=== PATIENT | female | born 1960 | race Native Hawaiian/Other Pacific Islander ===

== ENCOUNTER 2017-08-29 12:18 | Inpatient (IN) | payer MEDICAID ==
[2017-08-29] MEDS ORDERED: RINGERS SOLUTION,LACTATED 1,000 ML IV ONE ×2 (14:42→15:28)
[2017-08-29] MEDS ORDERED: ONDANSETRON HCL INJ/PF 4 MG/2 ML SDV IV ONE ×2 (14:43→17:36)
[2017-08-29] MEDS ORDERED: HYDROMORPHONE HCL INJ/PF 2 MG/ML AMPULE IV ONE (14:43)
[2017-08-29 15:10] LABS: ABSOLUTE EOSINOPHILS # (AUTO) 0.3 10^3/uL (0.0-0.6); ABSOLUTE LYMPHOCYTES (AUTO) 0.4 10^3/uL (0.5-4.7); ABSOLUTE MONOCYTES (AUTO) 0.3 10^3/uL (0.1-1.4); ABSOLUTE NEUT (AUTO) 2.8 10^3/uL (1.7-8.2); BASOPHILS % (AUTO) 0.5 % (0-2); EOSINOPHILS % (AUTO) 6.9 % (0-6); HEMATOCRIT 26.5 % (36.0-47.0); HEMOGLOBIN 8.9 g/dL (12.0-15.5); HGB HCT DIFFERENCE 0.2; LYMPHOCYTES % (AUTO) 11.4 % (13-45); MEAN CORPUSCULAR HEMOGLOBIN 25.8 pg (27.0-33.4); MEAN CORPUSCULAR HGB CONC 33.7 g/dL (32.0-36.0); MEAN CORPUSCULAR VOLUME 76 fl (80-97); MONOCYTES % (AUTO) 6.9 % (3-13); RED BLOOD COUNT 3.46 10^6/uL (3.72-5.28); RED CELL DISTRIBUTION WIDTH 15.4 % (11.5-14.0); SEGMENTED NEUTROPHILS % (AUTO) 74.3 % (42-78); WHITE BLOOD COUNT 3.8 10^3/uL (4.0-10.5)
--- NOTE | 2017-08-29 15:15 | ER Document Report ---
ED General - General Chief Complaint: Back Pain Stated Complaint: BACK PAIN,RIGHT ARM PAIN Time Seen by Provider: 08/29/17 14:42 Mode of Arrival: Ambulatory Information source: Patient Notes: This is a 56-year-old female with a history of stage IV thyroid cancer (status post 2 rounds of chemotherapy, in [place]) that recently came here to visit family and presents to the emergency room with nonproductive cough, back pain, nausea and vomiting. Patient states her symptoms started last Monday. Patient states she has not been able to tolerate any fluids. - HPI Onset: Last week Onset/Duration: Gradual Quality of pain: Dull Severity: Severe Pain Level: 5 Associated symptoms: denies: Chills, Fever, Shortness of breath Exacerbated by: Denies Relieved by: Denies Similar symptoms previously: Yes Recently seen / treated by doctor: Yes - Related Data Allergies/Adverse Reactions: Sulfa (Sulfonamide Antibiotics) Allergy (Verified 08/29/17 12:26) Past Medical History - General Information source: Patient - Social History Smoking Status: Never Smoker Cigarette use (# per day): No Chew tobacco use (# tins/day): No Frequency of alcohol use: None Drug Abuse: None Lives with: Family Family History: Reviewed & Not Pertinent Patient has suicidal ideation: No Patient has homicidal ideation: No - Medical History Medical History: Other - Stage IV metastatic thyroid cancer - Past Medical History Cardiac Medical History: Reports: Hx Hypertension Pulmonary Medical History: Reports: None EENT Medical History: Reports: None Neurological Medical History: Reports: None Endocrine Medical History: Reports: None Renal/ Medical History: Reports: None. Denies: Hx Peritoneal Dialysis Malignancy Medical History: Reports: None GI Medical History: Reports: None Musculoskeltal Medical History: Reports None Skin Medical History: Reports None Psychiatric Medical History: Reports: None Past Surgical History: Reports: Hx Thyroid Surgery Review of Systems - Review of Systems Constitutional: denies: Chills, Fever EENT: No symptoms reported Cardiovascular: No symptoms reported Respiratory: See HPI, Cough Gastrointestinal: No symptoms reported Genitourinary: No symptoms reported Female Genitourinary: No symptoms reported Musculoskeletal: See HPI Skin: No symptoms reported Hematologic/Lymphatic: No symptoms reported Neurological/Psychological: No symptoms reported Physical Exam - Vital signs Vitals: Temp Pulse Resp BP Pulse Ox 98.8 F 105 H 16 121/64 98 08/29/17 12:22 11/28/17 12:22 08/29/17 12:22 08/29/17 12:22 08/29/17 12:22 Notes: Physical exam: GENERAL: 56-year-old female, alert and oriented 3, appears weak and ill. HEAD: Atraumatic, normocephalic. EYES: Pupils equal round and reactive to light, extraocular movements intact, sclera anicteric, conjunctiva are normal. ENT: TMs normal, nares patent, oropharynx clear without exudates. dry mucous membranes. NECK: Normal range of motion, supple without obvious mass or JVD. LUNGS: Breath sounds clear to auscultation bilaterally and equal. No wheezes rales or rhonchi. HEART: Regular rate and rhythm without murmurs, rubs or gallops. ABDOMEN: Soft, normoactive bowel sounds. No tenderness to palpation. No guarding, no rebound. No masses appreciated. EXTREMITIES: Normal range of motion, no pitting or edema. No clubbing or cyanosis. NEUROLOGICAL: Cranial nerves II through XII grossly intact. Normal speech, moving all extremities. PSYCH: Normal mood, normal affect. SKIN: Warm, Dry, normal turgor, no rashes or lesions noted. Course - Re-evaluation Re-evalutation: 08/29/17 17:51 Note: Patient is required Dilaudid every hour and she is requiring required anti -emetics. She does appear quite weak on exam. Her weakness is generalized. She is moving her extremities. She is aware of her metastatic disease: I did discuss the CAT scan with her. I discussed the case with the oncologist on- call (Dr. Zeng) and she is willing to see the patient in consult. Due to her intractable pain and persistent nausea with vomiting, we will admit her to the hospital for pain control, IV fluids and anti-emetics. - Vital Signs Vital signs: Temp Pulse Resp BP Pulse Ox 98.8 F 105 H 16 121/64 98 08/29/17 12:22 08/29/17 12:22 08/29/17 12:22 08/29/17 12:22 08/29/17 12:22 - Laboratory Result Diagrams: 08/29/17 14:52 08/29/17 14:52 Laboratory results interpreted by me: 08/29/17 08/29/17 14:52 14:52 WBC 3.8 L RBC 3.46 L Hgb 8.9 L Hct 26.5 L MCV 76 L MCH 25.8 L RDW 15.4 H Plt Count 108 L Lymphocytes % 11.4 L Eosinophils % 6.9 H Absolute Lymphocytes 0.4 L Glucose 113 H Calcium 10.5 H Alkaline Phosphatase 203 H - Diagnostic Test Radiology reviewed: Image reviewed, Reports reviewed - CTA shows metastatic disease to the ribs, T12 compression fracture most likely pathologic. Discharge - Discharge Clinical Impression: Intractable pain, Vomiting with nausea, T12 compression fracture, Metastatic cancer Condition: Stable Disposition: ADMITTED INPATIENT Admitting Provider: Hospitalist - Dr Li Unit Admitted: Medical Floor
[2017-08-29 15:30] LABS: ALANINE AMINOTRANSFERASE 47 U/L (9-52); ALBUMIN 4.2 g/dL (3.5-5.0); ALKALINE PHOSPHATASE 203 U/L (38-126); ANION GAP 13 (5-19); ASPARTATE AMINO TRANSFERASE 33 U/L (14-36); BILIRUBIN,DIRECT 0.3 mg/dL (0.0-0.4); BILIRUBIN,TOTAL 0.5 mg/dL (0.2-1.3); BLOOD UREA NITROGEN 17 mg/dL (7-20); CALCIUM 10.5 mg/dL (8.4-10.2); CARBON DIOXIDE 25 mmol/L (22-30); CHLORIDE 105 mmol/L (98-107); CREATININE RESULT 0.81 mg/dL (0.52-1.25); GLUCOSE 113 mg/dL (75-110); POTASSIUM 4.9 mmol/L (3.6-5.0); TOTAL PROTEIN 6.7 g/dL (6.3-8.2)
--- NOTE | 2017-08-29 16:05 | RADIOLOGY REPORT (SQ) ---
EXAM DESCRIPTION: CHEST SINGLE VIEW COMPLETED DATE/TIME: 08/29/2017 3:56 pm REASON FOR STUDY: cough COMPARISON: None. EXAM PARAMETERS: NUMBER OF VIEWS: One view. TECHNIQUE: Single frontal radiographic view of the chest acquired. RADIATION DOSE: NA LIMITATIONS: None. FINDINGS: LUNGS AND PLEURA: Right lung grossly clear. On the left side, there are multiple surgical clips over the medial aspect left upper lobe likely pos t partial resection. There are nodular areas of pleural thickening over the left lung apex and left mid chest. Pleural based tumor may be present. No right or left pleural effusion or pneumothorax. MEDIASTINUM AND HILAR STRUCTURES: Surgical clips left upper hilum likely post partial resection of th e left upper lobe HEART AND VASCULAR STRUCTURES: Mild cardiomegaly BONES: Multiple old healed left lateral rib fractures or post thoracotomy change HARDWARE: No pacemaker OTHER: No other significant finding. IMPRESSION: Evidence of prior surgery on the left, with surgical clips in the medial aspect left upp er lung. Multiple nodular areas of pleural thickening worrisome for recurrent tumor. Old post thora cotomy or posttraumatic changes left lateral ribs TECHNICAL DOCUMENTATION: JOB ID: [id number] [employer]- All Rights Reserved
[2017-08-29] MEDS: HYDROMORPHONE HCL INJ/PF 2 MG/ML AMPULE IV PRN ×4 (16:06→20:52)
--- NOTE | 2017-08-29 17:27 | RADIOLOGY REPORT (SQ) ---
EXAM DESCRIPTION: CTA CHEST COMPLETED DATE/TIME: 08/29/2017 5:05 pm REASON FOR STUDY: back pain, sob COMPARISON: None. TECHNIQUE: CT scan of the chest performed using helical scanning technique with dynamic intravenous contrast injection. Images reviewed with lung, soft tissue and bone windows. Reconstructed coronal and sagittal MPR images reviewed. Additional 3 dimensional post-processing performed to develop Maximal Intensity Projection images (PR P). All images stored on PACS. All CT scanners at this facility use dose modulation, iterative reconstruction, and/or weight based d osing when appropriate to reduce radiation dose to as low as reasonably achievable (ALARA). [facility]: Dose Right [facility]: CareDose [facility]: Dose Right [facility]: Teradose 4D [facility]: [employer] CONTRAST TYPE AND DOSE: contrast/concentration: Isovue 370.00 mg/ml; Total Contrast Delivered: 60.0 ml; Total Saline Delivered: 105.0 ml Contrast bolus optimized for the pulmonary arteries. RENAL FUNCTION: Creatinine 0.81 RADIATION DOSE: CT Rad equipment meets quality standard of care and radiation dose reduction techniq ues were employed. CTDIvol: 9.3 - 11.3 mGy. DLP: 340 mGy-cm. . LIMITATIONS: None. FINDINGS: LUNGS AND PLEURA: There are multiple bilateral pleural base mass lesions which are more pr onounced in the left hemithorax as compared to the right. The largest of these is in the left lower hemithorax measuring 2.8 x 1.6 cm in diameters. A small 5.0 mm in diameter pulmonary nodule is ident ified in the right lower lung field best seen on image number 27. A pleural-based mass is identified in the right lower hemithorax with invasion of the adjacent 5th rib anteriorly with a large lytic le monica being identified. There are couple other small or lytic lesions involving the adjacent ribs. T he appearance is suspicious for metastatic disease. No acute consolidations or pleural effusions are identified. No pneumothorax is seen AORTA AND GREAT VESSELS: No aneurysm. Contrast bolus not optimized for the aorta. HEART: No pericardial effusion. No significant coronary artery calcifications. PULMONARY ARTERIES: No emboli visualized in the main pulmonary arteries or the segmental branches. HILAR AND MEDIASTINAL STRUCTURES: No identified masses or abnormal nodes. HARDWARE: None in the chest. UPPER ABDOMEN: No significant findings. Limited exam. THYROID AND OTHER SOFT TISSUES: Multiple varying size nodules are identified in the subcutaneous fat and adjacent to the thoracic musculature throughout the thorax suspicious for metastatic disease. BONES: There is approximately 50% compression of the T12 vertebra suspicious for a pathologic aubrey monica. Small lytic areas are identified involving multiple lives in lytic areas are identified involv ing the scapula bilaterally. The appearance is suspicious for metastatic disease 3D MIPS: Confirm above findings. OTHER: No other significant finding. IMPRESSION: No evidence for pulmonary embolic disease. No acute consolidations or pleural effusions are identified. Multiple bilateral pleural base mass lesions left greater than right as noted above suspicious for metastatic disease. There are lytic lesions involving adjacent ribs as noted above. Multiple nodular masses are identified in the subcutaneous fat and adjacent to the thoracic musculat ure throughout the thorax suspicious for metastatic disease. There is 50% compression of the T12 shane tebra suspicious for a pathologic compression. Other findings as noted above COMMENT: Quality ID # 436: Final reports with documentation of one or more dose reduction techniques (e.g., Automated exposure control, adjustment of the mA and/or kV according to patient size, use of iterative reconstruction technique) TECHNICAL DOCUMENTATION: JOB ID: [id number] [employer]- All Rights Reserved
[2017-08-29] MEDS ORDERED: NORMAL SALINE 1000 ML 1,000 ML IV PRN (17:52)
[2017-08-29] MEDS ORDERED: LORAZEPAM INJ 2 MG/1 ML VIAL IV PRN ×2 (18:07→18:14)
[2017-08-29] MEDS: DEXTROSE 5%-1/2 NORMAL SALINE 1,000 ML IV PRN (19:34)
[2017-08-29] MEDS: ONDANSETRON HCL INJ/PF 4 MG/2 ML SDV IV PRN (20:52)
[2017-08-29] MEDS ORDERED: MORPHINE SULFATE 10 MG/ML INJ IV PRN (21:00)
[2017-08-29] MEDS: METOCLOPRAMIDE HCL INJ/PF 10 MG/2 ML SDV IV SCH (22:23)
[2017-08-29] MEDS: PROMETHAZINE HCL INJ 25 MG/1 ML VIAL IV PRN ×2 (22:23→22:28)
[2017-08-30] MEDS: HYDROMORPHONE HCL INJ/PF 2 MG/ML AMPULE IV PRN ×5 (01:10→22:24)
[2017-08-30] MEDS: ONDANSETRON HCL INJ/PF 4 MG/2 ML SDV IV PRN ×2 (05:03→11:32)
--- NOTE | 2017-08-30 08:26 | PDOC CONSULTATION ---
Consultation Consult Date: 08/30/17 Consult reason:: Thyroid Cancer History of Present Illness Admission Date/PCP: 08/29/17 18:34 History of Present Illness: SALVADOR SANFORD is a 56 year old female who states that she arrived here from [place] 7 days ago to visit her children. She was diagnosed with Thyroid cancer in 1989 and underwent Thyroidectomy and radioactive Iodine treatments. She states that she was cancer free for 12 years, but then was round to have metastatic disease. She has been on Keytruda for the past 6 months and is overdue for her next cycle. She follows with Dr. Mohinder Young with [facility] in [place]. Over the past few days, she believes that she has caught pneumonia. She is coughing with chest pain and increased yellow sputum. She denies fevers or other problems this morning. Past Medical History Past Medical History: She received a blood transfusion earlier this year. Cardiac Medical History: Reports: Hypertension Pulmonary Medical History: Reports: None EENT Medical History: Reports: None Neurological Medical History: Reports: None Endocrine Medical History: Reports: None Renal/ Medical History: Reports: None Malignancy Medical History: Reports: None GI Medical History: Reports: None Musculoskeltal Medical History: Reports: None Skin Medical History: Reports: None Psychiatric Medical History: Reports: None Past Surgical History Past Surgical History: Reports: Thyroidectomy, Other - Lumpectomy Left Wrist Social History Information Source: Patient Occupation: retired [employer]. Lives with: Family, Other - She is with 2 children. Smoking Status: Never Smoker Frequency of Alcohol Use: None Hx Recreational Drug Use: No Drugs: None Hx Prescription Drug Abuse: No Family History Family History: Father age 54 from Lung Cancer. Mother age 84 from Lung cancer. Parental Family History Reviewed: Yes Children Family History Reviewed: No Sibling(s) Family History Reviewed.: Yes Medication/Allergy Home Medications: Gabapentin [Neurontin 300 mg Capsule] 300 mg PO Q8 08/29/17 Hydrochlorothiazide [Hydrodiuril 25 mg Tablet] 25 mg PO DAILY 08/29/17 Ondansetron HCl [Zofran 4 mg Tablet] 4 mg PO Q4HP PRN 08/29/17 Allergies/Adverse Reactions: Sulfa (Sulfonamide Antibiotics) Allergy (Verified 08/29/17 12:26) Review of Systems Constitutional: PRESENT: fatigue Eyes: ABSENT: visual disturbances Ears: ABSENT: hearing changes Nose, Mouth, and Throat: ABSENT: headache(s) Cardiovascular: PRESENT: chest pain Respiratory: PRESENT: cough, sputum. ABSENT: hemoptysis Gastrointestinal: PRESENT: nausea. ABSENT: constipation, diarrhea Integumentary: ABSENT: rash Neurological: ABSENT: confusion, numbness, tingling Psychiatric: ABSENT: anxiety, depression Endocrine: ABSENT: menstrual abnormalities Physical Exam Vital Signs: Temp Pulse Resp BP Pulse Ox 98.7 F 107 H 17 113/57 L 93 08/30/17 07:07 08/30/17 07:07 08/30/17 07:07 08/30/17 07:07 08/30/17 07:07 Intake & Output 08/29/17 08/30/17 08/31/17 06:59 06:59 06:59 Intake Total 222 Output Total 400 Balance -178 Weight 66.3 kg General appearance: PRESENT: no acute distress Exam: Well nourished, female. Head exam: PRESENT: atraumatic Eye exam: PRESENT: EOMI, PERRLA Mouth exam: PRESENT: moist, tongue midline Neck exam: ABSENT: lymphadenopathy, tenderness, thyromegaly Respiratory exam: PRESENT: clear to auscultation ronak Cardiovascular exam: PRESENT: RRR Pulses: PRESENT: normal dorsalis pedis pul GI/Abdominal exam: PRESENT: normal bowel sounds, soft. ABSENT: tenderness Gentrourinary exam: ABSENT: ecchymosis Extremities exam: ABSENT: pedal edema Musculoskeletal exam: ABSENT: tenderness Neurological exam: PRESENT: alert, awake, oriented to person, oriented to place , oriented to situation, CN II-XII grossly intact Psychiatric exam: PRESENT: appropriate affect. ABSENT: anxious, depressed Skin exam: PRESENT: normal color, warm Results Impressions: Chest X-Ray 08/29/17 15:15 IMPRESSION: Evidence of prior surgery on the left, with surgical clips in the medial aspect left upper lung. Multiple nodular areas of pleural thickening worrisome for recurrent tumor. Old post thoracotomy or posttraumatic changes left lateral ribs Chest/Abdomen CTA 08/29/17 16:34 IMPRESSION: No evidence for pulmonary embolic disease. No acute consolidations or pleural effusions are identified. Multiple bilateral pleural base mass lesions left greater than right as noted above suspicious for metastatic disease. There are lytic lesions involving adjacent ribs as noted above. Multiple nodular masses are identified in the subcutaneous fat and adjacent to the thoracic musculature throughout the thorax suspicious for metastatic disease. There is 50% compression of the T12 vertebra suspicious for a pathologic compression. Other findings as noted above Assessment & Plan - Diagnosis (1) Thyroid cancer Is this a current diagnosis for this admission?: Yes Plan: I have tried to contact Dr. Mohinder Young at [phone] for more information and patient records. However, the office was not yet open on [facility]. I have asked the hospital staff to try again later. I will need a pathology report, recent labs, recent CT report, and recent chemotherapy information. From the CT, it looks as though she has lung and bone mets. I am unsure what most recent treatment has been. She has had thyroid surgery in the past. I will check TSH and add synthroid as appropriate. (2) Hypercalcemia Plan: This may be related to the bone mets. I will try to see if she has had a bone modulating agent within the last month. I would continue to monitor and suggest obtaining ionized calcium. (3) Cough Plan: I will add Mucinex 1200 mg BID to see if this helps her cough. There was no evidence of pneumonia on chest CT. Consider repeat CXR tomorrow. If cough continues, consider pulse dose steroids or inhaler. But her lungs are clear this morning. (4) Pancytopenia due to antineoplastic chemotherapy Plan: This is currently mild. Continue to monitor and transfuse if needed. No current neutropenia.
[2017-08-30] MEDS: METOCLOPRAMIDE HCL INJ/PF 10 MG/2 ML SDV IV SCH ×4 (10:13→22:23)
[2017-08-30] MEDS: GUAIFENESIN 600 MG TABLET.SA PO SCH ×2 (10:13→22:23)
--- NOTE | 2017-08-30 19:55 | Physician Advisory Note ---
Physician Advisor ProgressNote .: [facility], I have reviewed the medical record for this patient. Physician Advisor Statement: Please consider documenting, if you agree: 1. "pancytopenia due to chemotherapy" 2. "pathological fx T12 due to metastatic dz" 3. "hypercalcemia due to mets" 4. H&P needs to be done within 24 hrs of admission. THanks! CK
[2017-08-31] MEDS: DEXTROSE 5%-1/2 NORMAL SALINE 1,000 ML IV PRN (01:00)
[2017-08-31] MEDS: HYDROMORPHONE HCL INJ/PF 2 MG/ML AMPULE IV PRN ×3 (03:24→13:56)
[2017-08-31] MEDS ORDERED: LEVOTHYROXINE SODIUM 0.025 MG TABLET PO SCH (06:00)
--- NOTE | 2017-08-31 07:40 | PDOC PROGRESS REPORT ---
Subjective Subjective:: Today, patient states that she is having pain in her right arm as well as numbness in her right 4th and 5th fingers. She shows me the soft tissue tumors on her neck and arm, presumably from the cancer. She states that she does not have severe pain, more of an annoyance. Her cough and nausea have improved. Reason For Visit: INTRACTABLE NAUSEA AND VOMITING,SEVERE Physical Exam Vital Signs: Temp Pulse Resp BP Pulse Ox 98.9 F 110 H 16 96/59 L 93 08/30/17 23:31 08/30/17 23:31 08/30/17 23:31 08/30/17 23:31 08/30/17 23:31 Intake & Output 08/30/17 08/31/17 09/01/17 06:59 06:59 06:59 Intake Total 222 2552 Output Total 400 1525 Balance -178 1027 Weight 66.3 kg 68.5 kg General appearance: PRESENT: no acute distress, cooperative, well-nourished Head exam: PRESENT: atraumatic Neck exam: PRESENT: other - Multiple soft tissue masses in posterior neck. Respiratory exam: PRESENT: clear to auscultation ronak Cardiovascular exam: PRESENT: RRR Neurological exam: PRESENT: alert, altered, CN II-XII grossly intact Results Impressions: Chest X-Ray 08/29/17 15:15 IMPRESSION: Evidence of prior surgery on the left, with surgical clips in the medial aspect left upper lung. Multiple nodular areas of pleural thickening worrisome for recurrent tumor. Old post thoracotomy or posttraumatic changes left lateral ribs Chest/Abdomen CTA 08/29/17 16:34 IMPRESSION: No evidence for pulmonary embolic disease. No acute consolidations or pleural effusions are identified. Multiple bilateral pleural base mass lesions left greater than right as noted above suspicious for metastatic disease. There are lytic lesions involving adjacent ribs as noted above. Multiple nodular masses are identified in the subcutaneous fat and adjacent to the thoracic musculature throughout the thorax suspicious for metastatic disease. There is 50% compression of the T12 vertebra suspicious for a pathologic compression. Other findings as noted above Assessment & Plan - Diagnosis (1) Thyroid cancer Is this a current diagnosis for this admission?: Yes Plan: I asked patient what she wanted long-term, if she wants to continue aggressive treatment or just wait and try to get stronger over the next few months. Patient is not sure. Since I do not yet have any records from [place], I have no way of knowing what her most recent chemo was, if it appears to be working, etc. (2) Hypercalcemia Plan: Repeat labs today. Consider bisphosphonate treatment. (3) Cough Plan: improving. (4) Pancytopenia due to antineoplastic chemotherapy Plan: Repeat labs today. (5) Cancer associated pain Plan: Consider a long-acting pain medication. She seems to be tolerating current regimen.
[2017-08-31 09:18] LABS: ABSOLUTE EOSINOPHILS # (AUTO) 0.2 10^3/uL (0.0-0.6); ABSOLUTE LYMPHOCYTES (AUTO) 0.4 10^3/uL (0.5-4.7); ABSOLUTE MONOCYTES (AUTO) 0.4 10^3/uL (0.1-1.4); ABSOLUTE NEUT (AUTO) 2.9 10^3/uL (1.7-8.2); BASOPHILS % (AUTO) 0.4 % (0-2); EOSINOPHILS % (AUTO) 5.7 % (0-6); HEMATOCRIT 23.6 % (36.0-47.0); HGB HCT DIFFERENCE -0.2; LYMPHOCYTES % (AUTO) 10.5 % (13-45); MEAN CORPUSCULAR HEMOGLOBIN 25.6 pg (27.0-33.4); MEAN CORPUSCULAR HGB CONC 33.2 g/dL (32.0-36.0); MEAN CORPUSCULAR VOLUME 77 fl (80-97); MONOCYTES % (AUTO) 9.9 % (3-13); RED BLOOD COUNT 3.06 10^6/uL (3.72-5.28); RED CELL DISTRIBUTION WIDTH 15.2 % (11.5-14.0); SEGMENTED NEUTROPHILS % (AUTO) 73.5 % (42-78); WHITE BLOOD COUNT 3.9 10^3/uL (4.0-10.5)
[2017-08-31 09:39] LABS: ALANINE AMINOTRANSFERASE 38 U/L (9-52); ALBUMIN 3.5 g/dL (3.5-5.0); ALKALINE PHOSPHATASE 161 U/L (38-126); ANION GAP 12 (5-19); ASPARTATE AMINO TRANSFERASE 26 U/L (14-36); BILIRUBIN,DIRECT 0.4 mg/dL (0.0-0.4); BILIRUBIN,TOTAL 0.6 mg/dL (0.2-1.3); BLOOD UREA NITROGEN 7 mg/dL (7-20); CALCIUM 9.6 mg/dL (8.4-10.2); CARBON DIOXIDE 23 mmol/L (22-30); CHLORIDE 103 mmol/L (98-107); GLUCOSE 114 mg/dL (75-110); POTASSIUM 3.7 mmol/L (3.6-5.0); SODIUM 138.2 mmol/L (137-145); TOTAL PROTEIN 5.8 g/dL (6.3-8.2)
[2017-08-31 09:47] LABS: HEMOGLOBIN 7.8 g/dL (12.0-15.5)
[2017-08-31] MEDS: METOCLOPRAMIDE HCL INJ/PF 10 MG/2 ML SDV IV SCH ×2 (09:53→13:40)
[2017-08-31] MEDS: GUAIFENESIN 600 MG TABLET.SA PO SCH (09:54)
[2017-08-31 11:44] VITALS: BP 108/59
[2017-08-31] MEDS ORDERED: ONDANSETRON HCL INJ/PF 4 MG/2 ML SDV IV PRN (15:00)
[2017-08-31] MEDS ORDERED: FENTANYL 12 MCG/HR PATCH.TD72 TD ONE (15:30)
--- NOTE | 2017-09-05 06:19 | PDOC H&P ---
History of Present Illness Admission Date/PCP: 08/29/17 18:34 Patient complains of: Nausea, vomiting and pain History of Present Illness: SALVADOR SANFORD is a 56 year old female with history of stage 4 thyroid cancer status post thyroidectomy and chemotheropy. Patient is currently undergo treament with [facility] in [place] at [place]. Patient states that this is her second round. She has been battling thyroid cancer for 32 years and has had multiple surgeries as result. Patient his her visiting her daughter, but states she will be moving her with her family. Patient states she has been nauseated and vomiting because of the morphine is is taking. She has chronic pain because of her metastatic disease and inability to tolerate her pain medication. Her family is not aware of how advance her disease is. Patient is moving here and would like to establish care with an oncologist. In the ED she continued to vomit despite being given anti emetics. Her pain was not well controlled with the doses of dilaudid she was given. She was found to have pathological fractures on imaging with mets to the ribs. Past Medical History Cardiac Medical History: Reports: Hypertension Pulmonary Medical History: Reports: None EENT Medical History: Reports: None Neurological Medical History: Reports: None Endocrine Medical History: Reports: None Renal/ Medical History: Reports: None Malignancy Medical History: Reports: None GI Medical History: Reports: None Musculoskeltal Medical History: Reports: None Skin Medical History: Reports: None Psychiatric Medical History: Reports: None Past Surgical History Past Surgical History: Reports: Thyroidectomy, Other - Lumpectomy Left Wrist Social History Information Source: Patient Lives with: Family, Other - She is with 2 children. Smoking Status: Never Smoker Frequency of Alcohol Use: None Hx Recreational Drug Use: No Drugs: None Hx Prescription Drug Abuse: No - Advance Directive Resuscitation Status: Full Code Family History Family History: Malignancy - lung cancer father Parental Family History Reviewed: No Children Family History Reviewed: No Sibling(s) Family History Reviewed.: No Medication/Allergy Home Medications: Gabapentin [Neurontin 300 mg Capsule] 300 mg PO Q8 08/29/17 Ondansetron HCl [Zofran 4 mg Tablet] 4 mg PO Q4HP PRN 08/29/17 Allergies/Adverse Reactions: Sulfa (Sulfonamide Antibiotics) Allergy (Verified 08/29/17 12:26) Review of Systems Constitutional: PRESENT: weakness. ABSENT: fever(s), headache(s), weight gain, weight loss Eyes: ABSENT: visual disturbances Ears: ABSENT: hearing changes Cardiovascular: ABSENT: chest pain, dyspnea on exertion, edema, orthropnea, palpitations Respiratory: ABSENT: cough, hemoptysis Gastrointestinal: PRESENT: nausea, vomiting. ABSENT: abdominal pain, constipation, diarrhea, hematemesis, hematochezia Genitourinary: ABSENT: dysuria, hematuria Musculoskeletal: PRESENT: back pain. ABSENT: joint swelling Integumentary: ABSENT: rash, wounds Neurological: ABSENT: abnormal gait, abnormal speech, confusion, dizziness, focal weakness, syncope Psychiatric: ABSENT: anxiety, depression, homidical ideation, suicidal ideation Endocrine: ABSENT: cold intolerance, heat intolerance, polydipsia, polyuria Hematologic/Lymphatic: ABSENT: easy bleeding, easy bruising Physical Exam Vital Signs: Temp Pulse Resp BP Pulse Ox 98.4 F 104 H 20 108/59 L 97 08/31/17 16:30 08/31/17 16:30 08/31/17 16:30 08/31/17 16:30 08/31/17 16:30 General appearance: PRESENT: no acute distress, severe distress, well-nourished Head exam: PRESENT: normocephalic Eye exam: PRESENT: EOMI. ABSENT: scleral icterus Ear exam: PRESENT: normal external ear exam Mouth exam: PRESENT: dry mucosa, neck supple Neck exam: ABSENT: carotid bruit, JVD, lymphadenopathy, thyromegaly Respiratory exam: PRESENT: clear to auscultation ronak. ABSENT: rales, rhonchi, wheezes Cardiovascular exam: PRESENT: RRR. ABSENT: diastolic murmur, rubs, systolic murmur Pulses: PRESENT: normal dorsalis pedis pul GI/Abdominal exam: PRESENT: normal bowel sounds, soft. ABSENT: distended, guarding, mass, organolmegaly, rebound, tenderness Rectal exam: PRESENT: deferred Extremities exam: PRESENT: full ROM. ABSENT: calf tenderness, clubbing, pedal edema Neurological exam: PRESENT: alert, awake, oriented to person, oriented to place , oriented to time, oriented to situation, CN II-XII grossly intact. ABSENT: motor sensory deficit Psychiatric exam: PRESENT: appropriate affect, normal mood. ABSENT: homicidal ideation, suicidal ideation Skin exam: PRESENT: dry, intact, warm. ABSENT: cyanosis, rash Results Impressions: Chest X-Ray 08/29/17 15:15 IMPRESSION: Evidence of prior surgery on the left, with surgical clips in the medial aspect left upper lung. Multiple nodular areas of pleural thickening worrisome for recurrent tumor. Old post thoracotomy or posttraumatic changes left lateral ribs Chest/Abdomen CTA 08/29/17 16:34 IMPRESSION: No evidence for pulmonary embolic disease. No acute consolidations or pleural effusions are identified. Multiple bilateral pleural base mass lesions left greater than right as noted above suspicious for metastatic disease. There are lytic lesions involving adjacent ribs as noted above. Multiple nodular masses are identified in the subcutaneous fat and adjacent to the thoracic musculature throughout the thorax suspicious for metastatic disease. There is 50% compression of the T12 vertebra suspicious for a pathologic compression. Other findings as noted above Assessment & Plan - Diagnosis (1) Pathological fracture Qualifiers: Pathology associated with fracture: neoplastic disease Is this a current diagnosis for this admission?: Yes Plan: T12 compression fracture with lytic lesion of the ribs secondary to metastatic thyroid cancer. Patient currently on small dose of dilaudid in the ED will increase dose. (2) Nausea & vomiting Qualifiers: Vomiting Intractability: unspecified Is this a current diagnosis for this admission?: Yes Plan: Due to pain medication. Currently being given anti emetics and fluids. Liquid diet as tolerated. (3) Hypercalcemia Is this a current diagnosis for this admission?: Yes Plan: Secondary to metastatic disease and or dehydration. Start IV fluids and monitor. (4) Pancytopenia due to antineoplastic chemotherapy Is this a current diagnosis for this admission?: Yes Plan: Patient was given chemo last which. The counts will recover. (5) Thyroid cancer Is this a current diagnosis for this admission?: Yes Plan: Patient actively undergoing treatment in [place]. Oncology consulted and will see the patient to establish care since she does not plan on returning there. - Time Time Spent: 30 to 50 Minutes Anticipated discharge: Home Within: within 48 hours - Inpatient Certification Medical Necessity: Need For IV Fluids
--- NOTE | 2017-09-05 06:28 | PDOC PROGRESS REPORT ---
Subjective Progress Note for:: 08/30/17 Subjective:: Patient with metastatic thyriod cancer here from [facility] presents with pain and nausea and vomiting. Patient nauseated by not vomiting. Patient still complaining of pain but its better. Reason For Visit: INTRACTABLE NAUSEA AND VOMITING,SEVERE Physical Exam Vital Signs: Vitals: Temp 98.7 HR 107 BP 113/57 RR 17 sat 93 General appearance: PRESENT: mild distress, well-developed, well-nourished Head exam: PRESENT: normocephalic Eye exam: PRESENT: EOMI. ABSENT: scleral icterus Mouth exam: PRESENT: moist Neck exam: ABSENT: carotid bruit, JVD, lymphadenopathy, thyromegaly Respiratory exam: PRESENT: clear to auscultation ronak. ABSENT: rales, rhonchi, wheezes Cardiovascular exam: PRESENT: RRR. ABSENT: diastolic murmur, rubs, systolic murmur Pulses: PRESENT: normal dorsalis pedis pul Vascular exam: PRESENT: normal capillary refill GI/Abdominal exam: PRESENT: normal bowel sounds, soft. ABSENT: distended, guarding, mass, organolmegaly, rebound, tenderness Rectal exam: PRESENT: deferred Extremities exam: PRESENT: full ROM. ABSENT: calf tenderness, clubbing, pedal edema Neurological exam: PRESENT: alert, awake, oriented to person, oriented to place , oriented to time, oriented to situation, CN II-XII grossly intact. ABSENT: motor sensory deficit Psychiatric exam: PRESENT: appropriate affect, normal mood. ABSENT: homicidal ideation, suicidal ideation Skin exam: PRESENT: dry, intact, warm. ABSENT: cyanosis, rash Results Impressions: Chest X-Ray 08/29/17 15:15 IMPRESSION: Evidence of prior surgery on the left, with surgical clips in the medial aspect left upper lung. Multiple nodular areas of pleural thickening worrisome for recurrent tumor. Old post thoracotomy or posttraumatic changes left lateral ribs Chest/Abdomen CTA 08/29/17 16:34 IMPRESSION: No evidence for pulmonary embolic disease. No acute consolidations or pleural effusions are identified. Multiple bilateral pleural base mass lesions left greater than right as noted above suspicious for metastatic disease. There are lytic lesions involving adjacent ribs as noted above. Multiple nodular masses are identified in the subcutaneous fat and adjacent to the thoracic musculature throughout the thorax suspicious for metastatic disease. There is 50% compression of the T12 vertebra suspicious for a pathologic compression. Other findings as noted above Assessment & Plan - Diagnosis (1) Pathological fracture Qualifiers: Pathology associated with fracture: neoplastic disease Is this a current diagnosis for this admission?: Yes Plan: T12 compression fracture with lytic lesion of the ribs secondary to metastatic thyroid cancer. Patient states pain is better controlled on higher dose of dialudid. (2) Nausea & vomiting Qualifiers: Vomiting Intractability: unspecified Is this a current diagnosis for this admission?: Yes Plan: Nauseated but no vomiting. Patient tolerating liquid diet. (3) Hypercalcemia Is this a current diagnosis for this admission?: Yes Plan: Secondary to metastatic disease and or dehydration. Continue IV fluids. (4) Pancytopenia due to antineoplastic chemotherapy Is this a current diagnosis for this admission?: Yes Plan: Due to current chemotherapy. The counts will recover. (5) Thyroid cancer Is this a current diagnosis for this admission?: Yes Plan: Patient actively undergoing treatment in [place]. Oncology following and have requested records. - Time Time Spent with patient: Less than 15 minutes Anticipated discharge: Home Within: within 24 hours - Inpatient Certification Medical Necessity: Need For IV Fluids, Need for Pain Control
--- NOTE | 2017-09-05 06:40 | PDOC DISCHARGE SUMMARY ---
General - Admit/Disc Date/PCP Admission Date/Primary Care Provider: 08/29/17 18:34 Discharge Date: 08/31/17 - Discharge Diagnosis (1) Pathological fracture Is this a current diagnosis for this admission?: Yes (2) Nausea & vomiting Is this a current diagnosis for this admission?: Yes (3) Hypercalcemia Is this a current diagnosis for this admission?: Yes (4) Pancytopenia due to antineoplastic chemotherapy Is this a current diagnosis for this admission?: Yes (5) Thyroid cancer Is this a current diagnosis for this admission?: Yes - Additional Information Resuscitation Status: Full Code Discharge Diet: Regular Discharge Activity: Activity As Tolerated, Balance Activity w/Rest Home Medications: Gabapentin [Neurontin 300 mg Capsule] 300 mg PO Q8 08/29/17 Ondansetron HCl [Zofran 4 mg Tablet] 4 mg PO Q4HP PRN 08/29/17 History of Present Illness History of Present Illness: SALVADOR SANFORD is a 56 year old female with history of stage 4 thyroid cancer status post thyroidectomy and chemotheropy. Patient is currently undergo treament with [facility] in [place] at [place]. Patient states that this is her second round. She has been battling thyroid cancer for 32 years and has had multiple surgeries as result. Patient his her visiting her daughter, but states she will be moving her with her family. Patient states she has been nauseated and vomiting because of the morphine is is taking. She has chronic pain because of her metastatic disease and inability to tolerate her pain medication. Her family is not aware of how advance her disease is. Patient is moving here and would like to establish care with an oncologist. In the ED she continued to vomit despite being given anti emetics. Her pain was not well controlled with the doses of dilaudid she was given. She was found to have pathological fractures on imaging with mets to the ribs. Original History and physical written by Dr. Vivian Li Hospital Course Hospital Course: Patient history of metastatic thyroids cancer stage 4 with mets to the bones and lungs seen on imaging. Patient undergo chemo in [facility] at [place]. Patient presenting with intractable nausea, vomiting and pain. Patient given anti emetics which was not working and then started on reglan. Patient was receiving IV fluids for her dehydration and hypercalcemia which is most likely due to her metastatic disease. Patient was found to have lytic lesions of the ribs and a T12 50% compression fracture which is possible pathological. Patient pain was controlled with dialudid. She was offered a fentanyl patch for time she was too nauseated to take oral meds; however, she refused, stating that it does not work. Patient also hesistant to be be given any scripts as she states that all her medications are filled in [place]. Patient was pancytopenic due to chemotherapy. Her hypothyroidism was due to her thyroidectomy. Patient is on thyroid replacement but does not know the dose of her thyroid medication. Patient has all of medications at home and does not need any at this time. Patient agreed to follow up with Dr. Santiago Oncology in 1 week. Patient refused any financial assistance stating that she is under her husbands insurance. Her is also battling stage 4 cancer. Patient symptoms are currently under control. Physical Exam Vital Signs: Temp Pulse Resp BP Pulse Ox 98.4 F 104 H 20 108/59 L 97 08/31/17 16:30 08/31/17 16:30 08/31/17 16:30 08/31/17 16:30 08/31/17 16:30 General appearance: PRESENT: no acute distress, well-developed, well-nourished Head exam: PRESENT: normocephalic Eye exam: ABSENT: scleral icterus Mouth exam: PRESENT: moist Neck exam: ABSENT: carotid bruit, JVD, lymphadenopathy, thyromegaly Respiratory exam: PRESENT: clear to auscultation ronak. ABSENT: rales, rhonchi, wheezes Cardiovascular exam: PRESENT: RRR. ABSENT: diastolic murmur, rubs, systolic murmur GI/Abdominal exam: PRESENT: normal bowel sounds, soft. ABSENT: distended, guarding, mass, organolmegaly, rebound, tenderness Rectal exam: PRESENT: deferred Extremities exam: PRESENT: full ROM. ABSENT: calf tenderness, clubbing, pedal edema Neurological exam: PRESENT: alert, awake, oriented to person, oriented to place , oriented to time, oriented to situation, CN II-XII grossly intact. ABSENT: motor sensory deficit Psychiatric exam: PRESENT: appropriate affect, normal mood. ABSENT: homicidal ideation, suicidal ideation Skin exam: PRESENT: dry, intact, warm. ABSENT: cyanosis, rash Results Laboratory Results: 08/31/17 08:48 08/31/17 08:48 Impressions: Chest X-Ray 08/29/17 15:15 IMPRESSION: Evidence of prior surgery on the left, with surgical clips in the medial aspect left upper lung. Multiple nodular areas of pleural thickening worrisome for recurrent tumor. Old post thoracotomy or posttraumatic changes left lateral ribs Chest/Abdomen CTA 08/29/17 16:34 IMPRESSION: No evidence for pulmonary embolic disease. No acute consolidations or pleural effusions are identified. Multiple bilateral pleural base mass lesions left greater than right as noted above suspicious for metastatic disease. There are lytic lesions involving adjacent ribs as noted above. Multiple nodular masses are identified in the subcutaneous fat and adjacent to the thoracic musculature throughout the thorax suspicious for metastatic disease. There is 50% compression of the T12 vertebra suspicious for a pathologic compression. Other findings as noted above Qualifiers PATEINT BEING DISCHARGED WITH ANY OF THE FOLLOWING DIAGNOSIS?: No Plan Time Spent: Greater than 30 Minutes - Discharge home to continue her medications as she has been taking them. Follow up with Dr. Santiago [facility] in 1 week.
== END 2017-08-31 17:00 | disposition home or self-care (01) | DRG 947 ==
LOC: ER 12:18 → EH 18:34 → 4W 21:20
PROVIDERS: ADMIT Hospitalist; ATTEND Hospitalist
DX: G89.3 Neoplasm related pain (acute) (chronic) (principal); D61.810 Antineoplastic chemotherapy induced pancytopenia; M84.58XA Pathological fracture in neoplastic disease, other specified site, initial encounter for fracture; C79.51 Secondary malignant neoplasm of bone; C78.00 Secondary malignant neoplasm of unspecified lung; E86.0 Dehydration; Z85.850 Personal history of malignant neoplasm of thyroid; E89.0 Postprocedural hypothyroidism; T45.1X5A Adverse effect of antineoplastic and immunosuppressive drugs, initial encounter; I10 Essential (primary) hypertension; Z79.899 Other long term (current) drug therapy; Z88.2 Allergy status to sulfonamides; E83.52 Hypercalcemia; R05 Cough
CPT/HCPCS: 36415; 71010; 71275; 80053; 83735; 84439; 84443; 85025; 96361; 96365; 96375; 96376; 99285; J1170; J2405; J2550; J2765; J7120

== ENCOUNTER 2017-09-30 12:22 | Inpatient (IN) | payer OTHER ==
--- NOTE | 2017-09-30 13:00 | ER Document Report ---
ED Extremity Problem, Upper - General Chief Complaint: Shoulder Pain Stated Complaint: RIGHT ARM PAIN Time Seen by Provider: 09/30/17 12:41 Information source: Patient, Relative Notes: Patient is an unfortunate 56-year-old female with stage IV thyroid cancer currently visiting from [place]. Patient supposedly did not have a place to live in [place] and was living with relatives. Patient came here a few months ago to live with her daughter. Patient has not had any chemotherapy or radiation greater than 6 months. Patient has been trying to find a primary care physician and cancer physician but has been unfortunately able to find one secondary to lack of "transferable insurance". Patient presents here with right humerus pain. She denies any recent falls. She states it is been present for 3 or 4 months. She denies any nausea, vomiting, fevers, chest pain , back pain, abdominal pain, or other extremity pain. Patient states she has multiple "masses" on her body secondary to the cancer. TRAVEL OUTSIDE OF THE [place] IN LAST 30 DAYS: No - HPI Patient complains to provider of: Other - See above Onset: Other - See above Recent injury: No Quality of pain: Achy Severity of pain: Mild Pain Level: 1 Context: Other - See above Associated symptoms: Other - See above Exacerbated by: Movement Relieved by: Nothing Similar symptoms previously: Yes Recently seen / treated by doctor: No - Related Data Allergies/Adverse Reactions: Sulfa (Sulfonamide Antibiotics) Allergy (Verified 09/30/17 12:23) Past Medical History - General Information source: Patient, Relative - Social History Smoking Status: Never Smoker Cigarette use (# per day): No Chew tobacco use (# tins/day): No Smoking Education Provided: No Frequency of alcohol use: None Drug Abuse: None Family History: Malignancy - lung cancer father Patient has suicidal ideation: No Patient has homicidal ideation: No - Past Medical History Cardiac Medical History: Reports: Hx Hypertension Renal/ Medical History: Denies: Hx Peritoneal Dialysis Past Surgical History: Reports: Hx Thyroid Surgery, Other - Lumpectomy Left Wrist Review of Systems - Review of Systems Constitutional: denies: Fever EENT: denies: Eye discharge, Blurred vision Cardiovascular: denies: Chest pain, Palpitations, Dizziness, Lightheaded Respiratory: denies: Short of breath Gastrointestinal: denies: Abdominal pain, Vomiting Genitourinary: denies: Dysuria Musculoskeletal: denies: Leg swelling Skin: Other - no hives. denies: Rash Neurological/Psychological: Other - no slurred speech -: Yes All other systems reviewed and negative Physical Exam - Vital signs Vitals: Temp Pulse Resp BP Pulse Ox 98.5 F 83 20 89/47 L 100 09/30/17 12:32 09/30/17 12:32 09/30/17 12:32 09/30/17 12:32 09/30/17 12:32 Notes: Reviewed vital signs and nursing note as charted by RN. CONSTITUTIONAL: Alert and oriented and responds appropriately to questions. Very thin frail female in no acute distress HEAD: Normocephalic; atraumatic NECK: Supple without meningismus; multiple nonerythematous nonfluctuant nodules to the posterior bilateral parasternal region extending into the trapezius regions CARD: Regular rate and rhythm; no murmurs RESP: Normal chest excursion without splinting or tachypnea; breath sounds clear and equal bilaterally ABD/GI: Normal bowel sounds; non-distended; soft, non-tender BACK: The back appears normal and is non-tender to palpation EXT: Patient has scattered nonerythematous nonfluctuant nodules to the lateral shoulder and humerus. Full range of motion of the left shoulder, elbow, and wrist. Neurovascularly intact distally regarding pulses, capillary refill, with 5 out of 5 lead performance support analyst strength SKIN: No acute lesions noted NEURO: Moves all extremities equally; Motor and sensory function intact PSYCH: The patient's mood and manner are appropriate. Grooming and personal hygiene are appropriate. Course - Re-evaluation Re-evalutation: 09/30/17 12:59 Given the history and physical examination we will x-ray the right humerus to evaluate for pathologic fracture as well as obtain a basic chemistry and calcium level. I believe that the patient requires primary care physician and oncology follow-up. They are trying to find a plane ticket for the patient to go back to [place]. In the meantime, being Monday, I have paged the casework supervisor to help follow-up with the patient when she is back in the office. 09/30/17 14:16 X-ray imaging as recorded. Patient's calcium and creatinine have increased as recorded. Given the very elevated calcium with bone pain, I will start normal saline as well as give a dose of zoledronic acid. - Vital Signs Vital signs: Temp Pulse Resp BP Pulse Ox 98.5 F 83 20 89/47 L 100 09/30/17 12:32 09/30/17 12:32 09/30/17 12:32 09/30/17 12:32 09/30/17 12:32 - Laboratory Result Diagrams: 09/30/17 13:14 09/30/17 13:14 Laboratory results interpreted by me: 09/30/17 09/30/17 13:14 13:14 WBC 3.2 L RBC 3.02 L Hgb 7.6 L Hct 23.6 L MCV 78 L MCH 25.1 L RDW 18.0 H Plt Count 126 L Eosinophils % 7.9 H BUN 22 H Creatinine 1.40 H Est GFR ( Amer) 47 L Est GFR (Non-Af Amer) 39 L Glucose 115 H Calcium 14.7 H* Critical Care Note - Critical Care Note Total time excluding time spent on procedures (mins): 35 Discharge - Discharge Clinical Impression: Hypercalcemia of malignancy, Right arm pain Condition: Fair Disposition: ADMITTED INPATIENT Admitting Provider: Hospitalist Unit Admitted: Telemetry
[2017-09-30] MEDS ORDERED: OXYCODONE-ACETAMINOPHEN 5-325 MG TABLET PO ONE (13:01)
[2017-09-30 13:40] LABS: ABSOLUTE EOSINOPHILS # (AUTO) 0.2 10^3/uL (0.0-0.6); ABSOLUTE LYMPHOCYTES (AUTO) 0.6 10^3/uL (0.5-4.7); ABSOLUTE MONOCYTES (AUTO) 0.2 10^3/uL (0.1-1.4); ABSOLUTE NEUT (AUTO) 2.2 10^3/uL (1.7-8.2); BASOPHILS % (AUTO) 0.6 % (0-2); EOSINOPHILS % (AUTO) 7.9 % (0-6); HEMATOCRIT 23.6 % (36.0-47.0); LYMPHOCYTES % (AUTO) 18.3 % (13-45); MEAN CORPUSCULAR HEMOGLOBIN 25.1 pg (27.0-33.4); MEAN CORPUSCULAR HGB CONC 32.1 g/dL (32.0-36.0); MEAN CORPUSCULAR VOLUME 78 fl (80-97); MONOCYTES % (AUTO) 5.3 % (3-13); PLATELET COUNT 126 10^3/uL (150-450); RED BLOOD COUNT 3.02 10^6/uL (3.72-5.28); SEGMENTED NEUTROPHILS % (AUTO) 67.9 % (42-78); TOTAL CELLS COUNTED % (AUTO) 100 %; WHITE BLOOD COUNT 3.2 10^3/uL (4.0-10.5)
[2017-09-30 13:43] LABS: HEMOGLOBIN 7.6 g/dL (12.0-15.5)
[2017-09-30 13:53] LABS: ANION GAP 10 (5-19); BLOOD UREA NITROGEN 22 mg/dL (7-20); CARBON DIOXIDE 25 mmol/L (22-30); CHLORIDE 103 mmol/L (98-107); GLUCOSE 115 mg/dL (75-110); POTASSIUM 4.3 mmol/L (3.6-5.0)
--- NOTE | 2017-09-30 14:02 | RADIOLOGY REPORT (SQ) ---
EXAM DESCRIPTION: HUMERUS RIGHT COMPLETED DATE/TIME: 09/30/2017 1:52 pm REASON FOR STUDY: Pain; metastatic cancer COMPARISON: None. NUMBER OF VIEWS: Two views. TECHNIQUE: Two radiographic images were acquired of the right humerus to include elbow and shoulder in at least one projection. LIMITATIONS: None. FINDINGS: MINERALIZATION: Osteopenia. BONES: Diffuse lytic lesions in the humeral shaft and ribs. No pathologic fractures. SOFT TISSUES: No obvious swelling or foreign body. OTHER: No other significant finding. IMPRESSION: Metastatic lesions without pathologic fracture. TECHNICAL DOCUMENTATION: JOB ID: [id number] [employer]- All Rights Reserved
--- NOTE | 2017-09-30 14:05 | RADIOLOGY REPORT (SQ) ---
EXAM DESCRIPTION: SHOULDER RIGHT 2 OR MORE VIEWS COMPLETED DATE/TIME: 09/30/2017 1:52 pm REASON FOR STUDY: Pain; stage IV thyroid cancer COMPARISON: None. NUMBER OF VIEWS: Three views. TECHNIQUE: Internal rotation, external rotation, and Y view images acquired of the right shoulder. LIMITATIONS: None. FINDINGS: MINERALIZATION: Osteopenia. BONES: Metastatic lesions of the proximal humerus and scapular. There also diffuse metastatic lesion s of the right ribs. No pathologic fractures. Incidental note is extensive destructive change of mu ltiple left ribs as well as multiple pulmonary nodules. Again metastatic lesions. JOINTS: No dislocation. VISUALIZED LUNGS AND RIBS: Pulmonary and metastasis on the left. Multiple rib lesions. Destructive changes of multiple left ribs. SOFT TISSUES: No radiopaque foreign body. OTHER: No other significant finding. IMPRESSION: Diffuse metastatic disease. No pathologic fractures on the right. Extensive rib involvement on the left with destruction as well as multiple pulmonary nodules. TECHNICAL DOCUMENTATION: JOB ID: [id number] [employer]- All Rights Reserved
[2017-09-30 14:07] LABS: CALCIUM 14.7 mg/dL (8.4-10.2)
[2017-09-30] MEDS ORDERED: NORMAL SALINE 1000 ML 1,000 ML IV ONE ×4 (14:07→23:55)
[2017-09-30] MEDS ORDERED: ZOLEDRONIC ACID 5 MG/100 ML BOTTLE IV ONE (14:10)
[2017-09-30] MEDS ORDERED: ZOLEDRONIC ACID 4 MG/100 ML RTU IV ONE (14:14)
[2017-09-30] MEDS ORDERED: MORPHINE SULFATE 10 MG/ML INJ IV ONE (14:17)
[2017-09-30] MEDS ORDERED: OXYCODONE HCL IR 5 MG TABLET PO PRN (15:08)
[2017-09-30] MEDS: HYDROMORPHONE HCL INJ/PF 2 MG/ML AMPULE IV PRN (15:54)
[2017-09-30] MEDS ORDERED: FUROSEMIDE INJ/PF 40 MG/4 ML SDV IV PRN (16:24)
[2017-09-30] MEDS ORDERED: NORMAL SALINE 250 ML IV PRN ×2 (16:24)
[2017-09-30] MEDS ORDERED: ACETAMINOPHEN 325 MG TABLET PO PRN (16:24)
--- NOTE | 2017-09-30 16:48 | PDOC H&P ---
History of Present Illness Admission Date/PCP: 09/30/17 15:01 Patient complains of: right arm pain History of Present Illness: SALVADOR SANFORD is a 56 year old female with a history of metastatic thyroid cancer status placed thyroidectomy and chemotherapy. Patient relocated to [facility] from [facility] where she was receiving therapy with Keytruda at [place]. Patient was recently admitted to our hospital last month for complications secondary to her metastatic disease. Patient now with right arm pain that is getting gradually worse. Patient has been unable to refill her medications due to her insurance not being able to be used here. Patient to return home where she could resume care for her metastatic thyroid cancer. Her children are looking into getting her a flight back home. She was unable to see Dr. Santiago as she would have to [id number] and she cannot afford that at this time. The ED patient was noted to be hypercalcemic with a calcium level of 14.7. Also found to have acute renal failure. X-ray of her arm shows metastatic disease to the bone. Hospitalist was called to admit patient for hypercalcemia with dehydration and acute renal failure. Patient also requires adequate pain management. Past Medical History Cardiac Medical History: Reports: Hypertension Endocrine Medical History: Reports: Hypothyroidism Malignancy Medical History: Reports: Other - thyroid cancer Hematology: Reports: Anemia, Neutropenia, Other - thrombocytopenia Past Surgical History Past Surgical History: Reports: Thyroidectomy, Other - Lumpectomy Left Wrist Social History Lives with: Family Smoking Status: Never Smoker Frequency of Alcohol Use: None Hx Recreational Drug Use: No Drugs: None Hx Prescription Drug Abuse: No - Advance Directive Resuscitation Status: Full Code Family History Family History: Malignancy - lung cancer father Parental Family History Reviewed: No Children Family History Reviewed: No Sibling(s) Family History Reviewed.: No Medication/Allergy Home Medications: Gabapentin [Neurontin 300 mg Capsule] 300 mg PO Q8 09/30/17 Ondansetron HCl [Zofran 4 mg Tablet] 4 mg PO Q4HP PRN 09/30/17 Allergies/Adverse Reactions: Sulfa (Sulfonamide Antibiotics) Allergy (Verified 09/30/17 12:23) Review of Systems Constitutional: ABSENT: chills, fever(s), headache(s), weight gain, weight loss Eyes: ABSENT: visual disturbances Ears: ABSENT: hearing changes Cardiovascular: ABSENT: chest pain, dyspnea on exertion, edema, orthropnea, palpitations Respiratory: ABSENT: cough, hemoptysis Gastrointestinal: PRESENT: nausea, vomiting. ABSENT: abdominal pain, constipation, diarrhea, hematemesis, hematochezia Genitourinary: ABSENT: dysuria, hematuria Musculoskeletal: PRESENT: back pain. ABSENT: joint swelling Integumentary: ABSENT: rash, wounds Neurological: ABSENT: abnormal gait, abnormal speech, confusion, dizziness, focal weakness, syncope Psychiatric: ABSENT: anxiety, depression, homidical ideation, suicidal ideation Endocrine: ABSENT: cold intolerance, heat intolerance, polydipsia, polyuria Hematologic/Lymphatic: ABSENT: easy bleeding, easy bruising Physical Exam Vital Signs: Temp Pulse Resp BP Pulse Ox 98.5 F 83 20 89/47 L 100 09/30/17 12:32 09/30/17 12:32 09/30/17 12:32 09/30/17 12:32 09/30/17 12:32 General appearance: PRESENT: mild distress, well-developed, well-nourished Head exam: PRESENT: normocephalic Eye exam: PRESENT: EOMI. ABSENT: scleral icterus Ear exam: PRESENT: normal external ear exam Mouth exam: PRESENT: dry mucosa Neck exam: PRESENT: lymphadenopathy - Diffuse lymphadenopathy supra clavicular postauricular submandibular. ABSENT: carotid bruit, JVD, thyromegaly Respiratory exam: PRESENT: clear to auscultation ronak. ABSENT: rales, rhonchi, wheezes Cardiovascular exam: PRESENT: RRR. ABSENT: diastolic murmur, rubs, systolic murmur GI/Abdominal exam: PRESENT: normal bowel sounds, soft. ABSENT: distended, guarding, mass, organolmegaly, rebound, tenderness Rectal exam: PRESENT: deferred Extremities exam: PRESENT: full ROM. ABSENT: calf tenderness, clubbing, pedal edema Neurological exam: PRESENT: alert, awake, oriented to person, oriented to place , oriented to time, oriented to situation, CN II-XII grossly intact. ABSENT: motor sensory deficit Psychiatric exam: PRESENT: appropriate affect, normal mood. ABSENT: homicidal ideation, suicidal ideation Skin exam: PRESENT: dry, intact, warm. ABSENT: cyanosis, rash Results Laboratory Results: 09/30/17 09/30/17 13:14 13:14 WBC 3.2 L RBC 3.02 L Hgb 7.6 L Hct 23.6 L MCV 78 L MCH 25.1 L MCHC 32.1 RDW 18.0 H Plt Count 126 L Seg Neutrophils % 67.9 Lymphocytes % 18.3 Monocytes % 5.3 Eosinophils % 7.9 H Basophils % 0.6 Absolute Neutrophils 2.2 Absolute Lymphocytes 0.6 Absolute Monocytes 0.2 Absolute Eosinophils 0.2 Absolute Basophils 0.0 Sodium 138.0 Potassium 4.3 Chloride 103 Carbon Dioxide 25 Anion Gap 10 BUN 22 H Creatinine 1.40 H Est GFR ( Amer) 47 L Est GFR (Non-Af Amer) 39 L Glucose 115 H Calcium 14.7 H* Impressions: Humerus X-Ray 09/30/17 12:54 IMPRESSION: Metastatic lesions without pathologic fracture. Shoulder X-Ray 09/30/17 13:00 IMPRESSION: Diffuse metastatic disease. No pathologic fractures on the right. Extensive rib involvement on the left with destruction as well as multiple pulmonary nodules. Assessment & Plan - Diagnosis (1) Metastasis to bone Is this a current diagnosis for this admission?: Yes Plan: Right arm pain secondary to metastasis of her thyroid cancer to the bone. Attempt to manage pain. Patient started on sustained release pain medication along with immediate release. Also started on steroids which may help with some of the bone pain. (2) Acute renal failure Is this a current diagnosis for this admission?: Yes Plan: Secondary to hypercalcemia from metastasis to the bone. Patient creatinine is now 1.4 and was 0.8 on previous admission. Will hydrate patient aggressively and follow-up renal function. (3) Hypercalcemia of malignancy Is this a current diagnosis for this admission?: Yes Plan: Likely due to metastatic cancer to the bone. Patient was given pamidronate 82 doses in the ED. Will continue with aggressive IV hydration. Will also start low-dose loop diuretic calcium does not improve with the current therapy. (4) Hypothyroid Qualifiers: Hypothyroidism type: acquired Qualified Code(s): E03.9 - Hypothyroidism, unspecified Is this a current diagnosis for this admission?: Yes Plan: Patient had thyroidectomy to thyroid cancer. Will check thyroid studies and replace accordingly. (5) Pancytopenia due to antineoplastic chemotherapy Is this a current diagnosis for this admission?: Yes Plan: She pancytopenic however not neutropenic. Will tranfuse 1 unit of PRBC. Will use SCD for DVT prophylaxis. Patient has no obvious signs of bleeding. (6) Thyroid cancer Is this a current diagnosis for this admission?: Yes Plan: Metastatic stage IV cancer. Patient was undergoing treatment in [place] but decided to move here with family. Patient has not received any treatment since then. She states she has had it back to [place] to continue her treatment. - Time Time Spent: 30 to 50 Minutes Anticipated discharge: Home Within: within 72 hours - Inpatient Certification Medical Necessity: Need For IV Fluids, Need for Pain Control
[2017-09-30] MEDS: DOCUSATE SODIUM 100 MG CAPSULE PO SCH (17:13)
[2017-09-30] MEDS: ONDANSETRON HCL INJ/PF 4 MG/2 ML SDV IV PRN (17:22)
[2017-09-30] MEDS: DEXAMETHASONE 4 MG TABLET PO SCH (22:35)
[2017-10-01] MEDS: OXYCODONE HCL SR 10 MG TABLET PO SCH ×2 (00:07→09:43)
[2017-10-01 00:45] LABS: ABSOLUTE EOSINOPHILS # (AUTO) 0.2 10^3/uL (0.0-0.6); ABSOLUTE LYMPHOCYTES (AUTO) 0.5 10^3/uL (0.5-4.7); ABSOLUTE MONOCYTES (AUTO) 0.2 10^3/uL (0.1-1.4); ABSOLUTE NEUT (AUTO) 1.8 10^3/uL (1.7-8.2); BASOPHILS % (AUTO) 0.5 % (0-2); EOSINOPHILS % (AUTO) 8.3 % (0-6); HEMATOCRIT 21.8 % (36.0-47.0); LYMPHOCYTES % (AUTO) 19.4 % (13-45); MEAN CORPUSCULAR HEMOGLOBIN 25.5 pg (27.0-33.4); MEAN CORPUSCULAR HGB CONC 32.2 g/dL (32.0-36.0); MEAN CORPUSCULAR VOLUME 79 fl (80-97); MONOCYTES % (AUTO) 6.1 % (3-13); RED BLOOD COUNT 2.75 10^6/uL (3.72-5.28); RED CELL DISTRIBUTION WIDTH 17.2 % (11.5-14.0); SEGMENTED NEUTROPHILS % (AUTO) 65.7 % (42-78); TOTAL CELLS COUNTED % (AUTO) 100 %; WHITE BLOOD COUNT 2.8 10^3/uL (4.0-10.5)
[2017-10-01 01:11] LABS: PLATELET COUNT 96 10^3/uL (150-450)
[2017-10-01] MEDS: FUROSEMIDE INJ/PF 20 MG/2 ML SDV IV PRN ×2 (03:05→06:44)
[2017-10-01] MEDS ORDERED: PHENYLEPHRINE HCL INJ/PF 10 MG/1 ML SDV IV PRN (05:26)
[2017-10-01] MEDS: NORMAL SALINE 1000 ML 1,000 ML IV PRN ×2 (06:22→19:18)
[2017-10-01] MEDS: LANSOPRAZOLE 30 MG TAB.RAP.DR PO SCH (06:23)
[2017-10-01] MEDS: DEXAMETHASONE 4 MG TABLET PO SCH ×3 (06:23→21:52)
[2017-10-01] MEDS: HYDROMORPHONE HCL INJ/PF 2 MG/ML AMPULE IV PRN (07:32)
[2017-10-01] MEDS: DOCUSATE SODIUM 100 MG CAPSULE PO SCH ×2 (09:42→17:25)
--- NOTE | 2017-10-01 10:59 | EKG REPORT ---
SEVERITY:- ABNORMAL ECG - SINUS RHYTHM NONSPECIFIC T ABNORMALITIES, INFERIOR LEADS : Confirmed by: Rebecca Edmonds MD 01-Oct-2017 10:58:57
--- NOTE | 2017-10-01 11:12 | PDOC CONSULTATION ---
Consultation Consult Date: 10/01/17 Attending physician:: HORACE MIKE Consult reason:: Hypercalcemia, metastatic thyroid carcinoma, bone metastasis History of Present Illness Admission Date/PCP: 09/30/17 14:46 Patient complains of: Dehydration, pain, confusion History of Present Illness: 56-year-old female with known history of stage IV thyroid carcinoma, please see my partner, Dr Santiago's note from 08/29/2017 for further details but patient previously was treated in [place], and was on immunotherapy, I do not know what type of thyroid carcinoma she has, but it is been about 8-10 weeks since her last treatment. She comes in with dehydration, weakness, upon presentation she was found to have acute renal failure with creatinine in the 1.4 range, but also severe hypercalcemia with a calcium of 14. She is also in fairly severe pain, most of the pain is in the right upper humerus region, she did have x- rays indicating diffuse disease but no fracture in that area. She has been given some IV Dilaudid, with some pain relief. She has not yet received bisphosphonate. Past Medical History Cardiac Medical History: Reports: Hypertension EENT Medical History: Reports: Other - thrombocytopenia Endocrine Medical History: Reports: Hypothyroidism Malignancy Medical History: Reports: Other - thyroid cancer Psychiatric Medical History: Denies: Depression Hematology: Reports: Anemia, Neutropenia, Other - thrombocytopenia Past Surgical History Past Surgical History: Reports: Thyroidectomy, Other - Lumpectomy Left Wrist Social History Information Source: Patient Lives with: Family Smoking Status: Never Smoker Frequency of Alcohol Use: None Hx Recreational Drug Use: No Drugs: None Hx Prescription Drug Abuse: No - Advance Directive Resuscitation Status: Full Code Family History Family History: Malignancy - lung cancer father Parental Family History Reviewed: Yes Children Family History Reviewed: Yes Sibling(s) Family History Reviewed.: Yes Medication/Allergy Home Medications: Gabapentin [Neurontin 300 mg Capsule] 300 mg PO Q8 09/30/17 Ondansetron HCl [Zofran 4 mg Tablet] 4 mg PO Q4HP PRN 09/30/17 Allergies/Adverse Reactions: Sulfa (Sulfonamide Antibiotics) Allergy (Verified 09/30/17 12:23) Review of Systems Constitutional: PRESENT: fatigue, weakness, weight loss Cardiovascular: PRESENT: dyspnea on exertion Gastrointestinal: ABSENT: abdominal pain, constipation, diarrhea, hematemesis, hematochezia, nausea, vomiting Musculoskeletal: PRESENT: other - Several areas of pain, right now right upper arm the worst Neurological: PRESENT: weakness Endocrine: PRESENT: cold intolerance Physical Exam Vital Signs: Temp Pulse Resp BP Pulse Ox 98.4 F 75 17 81/56 L 97 10/01/17 10:45 10/01/17 10:00 10/01/17 10:45 10/01/17 10:34 10/01/17 10:45 Intake & Output 09/30/17 10/01/17 10/02/17 06:59 06:59 06:59 Intake Total 3040 300 Output Total 100 460 Balance 2940 -160 Weight 68.3 kg General appearance: PRESENT: no acute distress, well-developed, well-nourished Head exam: PRESENT: atraumatic, normocephalic Eye exam: PRESENT: conjunctiva pink, EOMI, PERRLA. ABSENT: scleral icterus Ear exam: PRESENT: normal external ear exam Mouth exam: PRESENT: moist, tongue midline Neck exam: ABSENT: carotid bruit, JVD, lymphadenopathy, thyromegaly Respiratory exam: PRESENT: clear to auscultation ronak. ABSENT: rales, rhonchi, wheezes Cardiovascular exam: PRESENT: RRR. ABSENT: diastolic murmur, rubs, systolic murmur Pulses: PRESENT: normal dorsalis pedis pul Vascular exam: PRESENT: normal capillary refill GI/Abdominal exam: PRESENT: normal bowel sounds, soft. ABSENT: distended, guarding, mass, organolmegaly, rebound, tenderness Rectal exam: PRESENT: deferred Extremities exam: PRESENT: full ROM. ABSENT: calf tenderness, clubbing, pedal edema Neurological exam: PRESENT: alert, awake, oriented to person, oriented to place , oriented to time, oriented to situation, CN II-XII grossly intact. ABSENT: motor sensory deficit Psychiatric exam: PRESENT: appropriate affect, normal mood. ABSENT: homicidal ideation, suicidal ideation Skin exam: PRESENT: dry, intact, warm. ABSENT: cyanosis, rash Results Laboratory Results: 10/01/17 00:28 09/30/17 10/01/17 16:41 00:28 WBC 2.8 L RBC 2.75 L Hgb 7.0 L Hct 21.8 L MCV 79 L MCH 25.5 L MCHC 32.2 RDW 17.2 H Plt Count 96 L Seg Neutrophils % 65.7 Lymphocytes % 19.4 Monocytes % 6.1 Eosinophils % 8.3 H Basophils % 0.5 Absolute Neutrophils 1.8 Absolute Lymphocytes 0.5 Absolute Monocytes 0.2 Absolute Eosinophils 0.2 Absolute Basophils 0.0 Blood Type O POSITIVE Antibody Screen NEGATIVE Impressions: Humerus X-Ray 09/30/17 12:54 IMPRESSION: Metastatic lesions without pathologic fracture. Shoulder X-Ray 09/30/17 13:00 IMPRESSION: Diffuse metastatic disease. No pathologic fractures on the right. Extensive rib involvement on the left with destruction as well as multiple pulmonary nodules. Assessment & Plan - Diagnosis (1) Hypercalcemia of malignancy Is this a current diagnosis for this admission?: Yes Plan: Will give Zometa today, continue with aggressive hydration, and other supportive measures. (2) Cancer associated pain Is this a current diagnosis for this admission?: Yes Plan: Severe, continue with IV Dilaudid, I will change OxyContin to morphine sustained release, if her insurance from [place] will not cover any pharmacies here, the morphine will be cheaper. (3) Thyroid cancer Is this a current diagnosis for this admission?: Yes Plan: We still need to get records as an outpatient, we have not received records, generally immunotherapy is not usually used for this cancer, but there are several oral medications available depending on the type of thyroid cancer. So there are treatments available, and even if the patient is uninsured sometimes we can get the mail ordered here. But we need to investigate this further as an outpatient, so I did tell the patient even if her insurance is not accepted by our clinic, we could still see her and try and manage her. (4) Pancytopenia due to antineoplastic chemotherapy Is this a current diagnosis for this admission?: Yes Plan: Probably not truly secondary to the chemotherapy has immunotherapy usually does not cause pancytopenia, but she may actually have bone marrow involvement of the thyroid cancer, no need for platelet transfusions at present. (5) Anemia Qualifiers: Bone marrow failure anemia type: other bone marrow failure Is this a current diagnosis for this admission?: Yes Plan: Probably because of bone marrow infiltration from the thyroid cancer, may be other cause such as anemia of chronic disease, agree with transfusion, see where hemoglobin lies after that. - Time Time Spent: Greater than 70 Minutes Total Critical Time (Minutes): 75 - Inpatient Certification Based on my medical assessment, after consideration of the patient's comorbidities, presenting symptoms, or acuity I expect that the services needed warrant INPATIENT care.: Yes I certify that my determination is in accordance with my understanding of Medicare's requirements for reasonable and necessary INPATIENT services [42 CFR 412.3e].: Yes Medical Necessity: Need For IV Fluids, Need For Continuous Telemetry Monitoring , Need for Pain Control, Risk of Complication if Not Cared For in Hospital
[2017-10-01] MEDS ORDERED: ZOLEDRONIC ACID/MANNITOL/WATER 4 MG/100 ML INFUS..BTL IV ONE (12:30)
[2017-10-01 12:38] LABS: ABSOLUTE LYMPHOCYTES (AUTO) 0.5 10^3/uL (0.5-4.7); ABSOLUTE MONOCYTES (AUTO) 0.1 10^3/uL (0.1-1.4); ABSOLUTE NEUT (AUTO) 2.8 10^3/uL (1.7-8.2); BASOPHILS % (AUTO) 0.3 % (0-2); EOSINOPHILS % (AUTO) 1.1 % (0-6); HEMATOCRIT 28.4 % (36.0-47.0); LYMPHOCYTES % (AUTO) 14.8 % (13-45); MEAN CORPUSCULAR HEMOGLOBIN 26.1 pg (27.0-33.4); MEAN CORPUSCULAR HGB CONC 32.7 g/dL (32.0-36.0); MEAN CORPUSCULAR VOLUME 80 fl (80-97); MONOCYTES % (AUTO) 3.6 % (3-13); PLATELET COUNT 125 10^3/uL (150-450); RED BLOOD COUNT 3.57 10^6/uL (3.72-5.28); RED CELL DISTRIBUTION WIDTH 17.8 % (11.5-14.0); SEGMENTED NEUTROPHILS % (AUTO) 80.2 % (42-78); TOTAL CELLS COUNTED % (AUTO) 100 %; WHITE BLOOD COUNT 3.5 10^3/uL (4.0-10.5)
[2017-10-01 12:40] LABS: HEMOGLOBIN 9.3 g/dL (12.0-15.5)
[2017-10-01 12:55] LABS: ALANINE AMINOTRANSFERASE 43 U/L (9-52); ALBUMIN 3.6 g/dL (3.5-5.0); ALKALINE PHOSPHATASE 117 U/L (38-126); ANION GAP 9 (5-19); ASPARTATE AMINO TRANSFERASE 45 U/L (14-36); BILIRUBIN,DIRECT 0.4 mg/dL (0.0-0.4); BILIRUBIN,TOTAL 1.1 mg/dL (0.2-1.3); BLOOD UREA NITROGEN 19 mg/dL (7-20); CARBON DIOXIDE 23 mmol/L (22-30); CHLORIDE 104 mmol/L (98-107); GLUCOSE 97 mg/dL (75-110); MAGNESIUM 1.7 mg/dL (1.6-2.3); PHOSPHORUS 3.2 mg/dL (2.5-4.5); POTASSIUM 4.7 mmol/L (3.6-5.0); SODIUM 135.5 mmol/L (137-145)
[2017-10-01 13:06] LABS: CALCIUM 12.7 mg/dL (8.4-10.2)
[2017-10-01 13:10] LABS: FREE T3 0.79 pg/mL (2.77-5.27)
[2017-10-01 13:24] LABS: THYROID STIMULATING HORMONE 9.89 uIU/mL (0.47-4.68)
[2017-10-01 13:27] LABS: FREE T4 (FREE THYROXINE) < 0.07 ng/dL (0.78-2.19)
[2017-10-01] MEDS: ONDANSETRON HCL INJ/PF 4 MG/2 ML SDV IV PRN (16:26)
[2017-10-01] MEDS: MORPHINE SULFATE SR 30 MG TABLET PO SCH (21:52)
[2017-10-02] MEDS: HYDROMORPHONE HCL INJ/PF 2 MG/ML AMPULE IV PRN (00:21)
[2017-10-02] MEDS: LANSOPRAZOLE 30 MG TAB.RAP.DR PO SCH (05:21)
[2017-10-02] MEDS: NORMAL SALINE 1000 ML 1,000 ML IV PRN ×2 (05:21→15:51)
[2017-10-02] MEDS: DEXAMETHASONE 4 MG TABLET PO SCH ×3 (05:21→23:08)
[2017-10-02 06:35] LABS: ABSOLUTE LYMPHOCYTES (AUTO) 0.5 10^3/uL (0.5-4.7); ABSOLUTE MONOCYTES (AUTO) 0.2 10^3/uL (0.1-1.4); ABSOLUTE NEUT (AUTO) 3.4 10^3/uL (1.7-8.2); BASOPHILS % (AUTO) 0.2 % (0-2); EOSINOPHILS % (AUTO) 0.6 % (0-6); HEMATOCRIT 28.2 % (36.0-47.0); HEMOGLOBIN 9.4 g/dL (12.0-15.5); LYMPHOCYTES % (AUTO) 12.8 % (13-45); MEAN CORPUSCULAR HEMOGLOBIN 26.7 pg (27.0-33.4); MEAN CORPUSCULAR HGB CONC 33.5 g/dL (32.0-36.0); MEAN CORPUSCULAR VOLUME 80 fl (80-97); MONOCYTES % (AUTO) 5.3 % (3-13); PLATELET COUNT 129 10^3/uL (150-450); RED BLOOD COUNT 3.53 10^6/uL (3.72-5.28); RED CELL DISTRIBUTION WIDTH 17.9 % (11.5-14.0); SEGMENTED NEUTROPHILS % (AUTO) 81.1 % (42-78); TOTAL CELLS COUNTED % (AUTO) 100 %; WHITE BLOOD COUNT 4.1 10^3/uL (4.0-10.5)
[2017-10-02 06:50] LABS: MAGNESIUM 1.6 mg/dL (1.6-2.3); PHOSPHORUS 1.9 mg/dL (2.5-4.5)
[2017-10-02 08:33] LABS: ANION GAP 9 (5-19); BLOOD UREA NITROGEN 22 mg/dL (7-20); CALCIUM 10.6 mg/dL (8.4-10.2); CARBON DIOXIDE 20 mmol/L (22-30); CHLORIDE 104 mmol/L (98-107); GLUCOSE 106 mg/dL (75-110); POTASSIUM 4.3 mmol/L (3.6-5.0); SODIUM 133.4 mmol/L (137-145)
[2017-10-02] MEDS: DOCUSATE SODIUM 100 MG CAPSULE PO SCH ×2 (09:10→17:49)
[2017-10-02] MEDS: MORPHINE SULFATE SR 30 MG TABLET PO SCH ×2 (09:10→23:07)
[2017-10-02] MEDS: ONDANSETRON HCL INJ/PF 4 MG/2 ML SDV IV PRN (15:51)
[2017-10-02] MEDS ORDERED: ONDANSETRON HCL INJ/PF 4 MG/2 ML SDV IV PRN (17:49)
[2017-10-02] MEDS: PROMETHAZINE HCL INJ 25 MG/1 ML VIAL IV PRN (17:52)
[2017-10-03] MEDS: NORMAL SALINE 1000 ML 1,000 ML IV PRN ×3 (00:27→12:35)
[2017-10-03] MEDS: DEXTROSE 5%-WATER 250 ML with PHENYLEPHRINE HCL 40 MG IV PRN ×4 (01:02→11:38)
[2017-10-03 04:17] LABS: ABSOLUTE LYMPHOCYTES (AUTO) 0.8 10^3/uL (0.5-4.7); ABSOLUTE MONOCYTES (AUTO) 0.3 10^3/uL (0.1-1.4); ABSOLUTE NEUT (AUTO) 4.1 10^3/uL (1.7-8.2); BASOPHILS % (AUTO) 0.3 % (0-2); EOSINOPHILS % (AUTO) 0.5 % (0-6); HEMATOCRIT 26.4 % (36.0-47.0); HEMOGLOBIN 8.9 g/dL (12.0-15.5); LYMPHOCYTES % (AUTO) 15.9 % (13-45); MEAN CORPUSCULAR HEMOGLOBIN 26.8 pg (27.0-33.4); MEAN CORPUSCULAR HGB CONC 33.7 g/dL (32.0-36.0); MEAN CORPUSCULAR VOLUME 80 fl (80-97); MONOCYTES % (AUTO) 5.1 % (3-13); PLATELET COUNT 147 10^3/uL (150-450); RED BLOOD COUNT 3.33 10^6/uL (3.72-5.28); RED CELL DISTRIBUTION WIDTH 17.9 % (11.5-14.0); SEGMENTED NEUTROPHILS % (AUTO) 78.2 % (42-78); TOTAL CELLS COUNTED % (AUTO) 100 %; WHITE BLOOD COUNT 5.2 10^3/uL (4.0-10.5)
[2017-10-03 04:31] LABS: MAGNESIUM 1.6 mg/dL (1.6-2.3); PHOSPHORUS 1.9 mg/dL (2.5-4.5)
[2017-10-03] MEDS: LANSOPRAZOLE 30 MG TAB.RAP.DR PO SCH (05:33)
[2017-10-03] MEDS: DEXAMETHASONE 4 MG TABLET PO SCH ×3 (05:33→21:26)
--- NOTE | 2017-10-03 07:37 | PDOC PROGRESS REPORT ---
Subjective Progress Note for:: 10/03/17 Subjective:: Ms. Lucas states that she is feeling much better today. She was dreaming about food all night and is anxious to eat breakfast this morning. She recognizes me from her previous hospitalization and states that the reason she did not follow- up in the office was because she was worried about no insurance. I asked her about Hospice, but she assures me that she is not ready for this and she would like to continue active therapy. On ROS, she denies any nausea. She continues to have bone pain, but this is improved. No dyspnea. Reason For Visit: HYPERCALCEMIA,METASTATIC THYROID CANCER,AKF Physical Exam Vital Signs: Temp Pulse Resp BP Pulse Ox 98.6 F 68 14 96/56 L 99 10/03/17 06:35 10/02/17 22:00 10/03/17 06:35 10/03/17 06:35 10/03/17 06:35 Intake & Output 10/02/17 10/03/17 10/04/17 06:59 06:59 06:59 Intake Total 2932 2983 Output Total 2030 2325 Balance 902 658 Weight 69.3 kg 71.9 kg General appearance: PRESENT: no acute distress, well-nourished Exam: 56 year old female. Lying in bed comfortably. Converses freely. Respiratory exam: PRESENT: clear to auscultation ronak, unlabored Cardiovascular exam: PRESENT: RRR. ABSENT: systolic murmur GI/Abdominal exam: PRESENT: normal bowel sounds, soft. ABSENT: tenderness Extremities exam: ABSENT: pedal edema Neurological exam: PRESENT: oriented to person, oriented to place, oriented to situation Psychiatric exam: PRESENT: appropriate affect Skin exam: PRESENT: normal color Results Laboratory Results: 10/03/17 04:06 10/02/17 06:18 10/02/17 10/03/17 10/03/17 06:18 04:06 04:06 WBC 5.2 RBC 3.33 L Hgb 8.9 L Hct 26.4 L MCV 80 MCH 26.8 L MCHC 33.7 RDW 17.9 H Plt Count 147 L Seg Neutrophils % 78.2 H Lymphocytes % 15.9 Monocytes % 5.1 Eosinophils % 0.5 Basophils % 0.3 Absolute Neutrophils 4.1 Absolute Lymphocytes 0.8 Absolute Monocytes 0.3 Absolute Eosinophils 0.0 Absolute Basophils 0.0 Sodium 133.4 L Potassium 4.3 Chloride 104 Carbon Dioxide 20 L Anion Gap 9 BUN 22 H Creatinine 1.26 H Est GFR ( Amer) 54 L Est GFR (Non-Af Amer) 44 L Glucose 106 Calcium 10.6 H Phosphorus 1.9 L Magnesium 1.6 Impressions: Humerus X-Ray 09/30/17 12:54 IMPRESSION: Metastatic lesions without pathologic fracture. Shoulder X-Ray 09/30/17 13:00 IMPRESSION: Diffuse metastatic disease. No pathologic fractures on the right. Extensive rib involvement on the left with destruction as well as multiple pulmonary nodules. Assessment & Plan - Diagnosis (1) Thyroid cancer Is this a current diagnosis for this admission?: Yes Plan: Records finally available from [place]. She states that she would like to continue aggressive therapy. We will discuss this more as outpatient. (2) Hypercalcemia of malignancy Is this a current diagnosis for this admission?: Yes Plan: She has received appropriate treatment for this and has improved. Continue to monitor. She will need continued treatment as an outpatient. (3) Right arm pain Plan: Due to metastases. Continue pain medications. - Plan Summary Plan Summary: I will be happy to continue to follow, both here and after discharge. Please call me with concerns.
[2017-10-03] MEDS: DOCUSATE SODIUM 100 MG CAPSULE PO SCH ×2 (09:33→18:01)
[2017-10-03] MEDS: MORPHINE SULFATE SR 30 MG TABLET PO SCH (09:33)
[2017-10-03] MEDS ORDERED: MORPHINE SULFATE SR 15 MG TABLET PO PRN (10:05)
[2017-10-03] MEDS ORDERED: HYDROMORPHONE HCL INJ/PF 2 MG/ML AMPULE IV PRN (10:13)
[2017-10-03] MEDS ORDERED: NORMAL SALINE 1000 ML 1,000 ML IV PRN (10:14)
[2017-10-03] MEDS ORDERED: ONDANSETRON HCL INJ/PF 4 MG/2 ML SDV IV PRN (10:30)
[2017-10-03] MEDS ORDERED: NORMAL SALINE 500 ML IV ONE (11:30)
[2017-10-03] MEDS: MAGNESIUM SULFATE/D5W 1 GM/100 ML RTUPB IV SCH ×2 (11:36→12:34)
--- NOTE | 2017-10-03 17:17 | PDOC PROGRESS REPORT ---
Subjective Progress Note for:: 10/03/17 Subjective:: No complaints at present. Pain is well controlled. Blood pressures have been running low. MS Contin dose will be reduced since this is felt likely to be a cause for hypotension. Reason For Visit: HYPERCALCEMIA,METASTATIC THYROID CANCER,AKF Physical Exam Vital Signs: Temp Pulse Resp BP Pulse Ox 98.6 F 67 25 H 99/62 L 100 10/03/17 15:25 10/03/17 15:25 10/03/17 15:25 10/03/17 15:25 10/03/17 15:25 Intake & Output 10/02/17 10/03/17 10/04/17 06:59 06:59 06:59 Intake Total 2932 2983 Output Total 5777 2871 1710 Balance 902 658 -1710 Weight 69.3 kg 71.9 kg Additional comments: Lace female lying comfortably in bed not in acute distress Lungs: Clear to auscultation bilaterally normal respiratory effort Cardiac: S1-S2 regular no peripheral edema no cyanosis no calf tenderness no thrills palpable Abdomen: Soft, no focal tenderness normal bowel sounds Skin: Warm and dry Neurologic: Awake and alert oriented 3 Results Laboratory Results: 10/03/17 04:06 10/02/17 06:18 10/03/17 10/03/17 04:06 04:06 WBC 5.2 RBC 3.33 L Hgb 8.9 L Hct 26.4 L MCV 80 MCH 26.8 L MCHC 33.7 RDW 17.9 H Plt Count 147 L Seg Neutrophils % 78.2 H Lymphocytes % 15.9 Monocytes % 5.1 Eosinophils % 0.5 Basophils % 0.3 Absolute Neutrophils 4.1 Absolute Lymphocytes 0.8 Absolute Monocytes 0.3 Absolute Eosinophils 0.0 Absolute Basophils 0.0 Phosphorus 1.9 L Magnesium 1.6 Impressions: Humerus X-Ray 09/30/17 12:54 IMPRESSION: Metastatic lesions without pathologic fracture. Shoulder X-Ray 09/30/17 13:00 IMPRESSION: Diffuse metastatic disease. No pathologic fractures on the right. Extensive rib involvement on the left with destruction as well as multiple pulmonary nodules. Assessment & Plan - Diagnosis (1) Acute renal failure Is this a current diagnosis for this admission?: Yes (2) Anemia Qualifiers: Bone marrow failure anemia type: other bone marrow failure Is this a current diagnosis for this admission?: Yes (3) Hypercalcemia of malignancy Is this a current diagnosis for this admission?: Yes (4) Hypothyroid Qualifiers: Hypothyroidism type: acquired Qualified Code(s): E03.9 - Hypothyroidism, unspecified Is this a current diagnosis for this admission?: Yes (5) Metastasis to bone Is this a current diagnosis for this admission?: Yes (7) Cancer associated pain Is this a current diagnosis for this admission?: Yes - Time Total Critical Time (Minutes): 40 - Plan Summary Plan Summary: Increase the rate of IV fluids. We will give her IV fluid boluses. MS Contin dose reduced to prevent hypotension. We will try to wean off pressors.
[2017-10-04] MEDS: LANSOPRAZOLE 30 MG TAB.RAP.DR PO SCH (05:27)
[2017-10-04] MEDS: DEXTROSE 5%-WATER 250 ML with PHENYLEPHRINE HCL 40 MG IV PRN ×2 (05:27)
[2017-10-04] MEDS: DEXAMETHASONE 4 MG TABLET PO SCH ×3 (05:27→22:30)
--- NOTE | 2017-10-04 07:24 | PDOC PROGRESS REPORT ---
Subjective Progress Note for:: 10/04/17 Subjective:: Patient without complaints this morning. States that she would like to get up out of bed, but she still has Kapadia cath in place. Eating well. Denies any pain. Reason For Visit: HYPERCALCEMIA,METASTATIC THYROID CANCER,AKF Physical Exam Vital Signs: Temp Pulse Resp BP Pulse Ox 98.2 F 606 H 18 94/63 L 98 10/04/17 06:45 10/03/17 20:17 10/04/17 00:00 10/04/17 06:43 10/04/17 06:45 Intake & Output 10/03/17 10/04/17 10/05/17 06:59 06:59 06:59 Intake Total 2983 3573 Output Total 2321 4180 Balance 658 -607 Weight 71.9 kg 74.4 kg General appearance: PRESENT: no acute distress Respiratory exam: PRESENT: clear to auscultation ronak, unlabored Cardiovascular exam: PRESENT: RRR, systolic murmur GI/Abdominal exam: PRESENT: normal bowel sounds, soft. ABSENT: tenderness Extremities exam: ABSENT: pedal edema Results Laboratory Results: 10/03/17 04:06 10/02/17 06:18 Impressions: Humerus X-Ray 09/30/17 12:54 IMPRESSION: Metastatic lesions without pathologic fracture. Shoulder X-Ray 09/30/17 13:00 IMPRESSION: Diffuse metastatic disease. No pathologic fractures on the right. Extensive rib involvement on the left with destruction as well as multiple pulmonary nodules. Assessment & Plan - Diagnosis (1) Thyroid cancer Is this a current diagnosis for this admission?: Yes (2) Hypercalcemia of malignancy Is this a current diagnosis for this admission?: Yes - Plan Summary Plan Summary: Appears to be improving. I agree with plan of care. Further treatment for her cancer on discharge. Please call if needed.
[2017-10-04] MEDS: MAGNESIUM SULFATE/D5W 1 GM/100 ML RTUPB IV SCH ×3 (08:49→11:42)
--- NOTE | 2017-10-04 08:55 | PDOC PROGRESS REPORT ---
Subjective Progress Note for:: 10/04/17 Subjective:: 56-year-old female with stage IV thyroid cancer with metastatic disease to the bone who is visiting from [place]. She has not had any chemotherapy or radiation for more than 6 months and has been trying to find a primary care physician and an oncologist locally but has been unsuccessful due to lack of transferable insurance. She presented to the emergency room on September 30 with right humerus pain that has been ongoing for 3-4 months. Emergency room she was found to have a calcium level of 14.7 with acute renal failure. X-ray of her arm showed metastatic disease to the bone. She was started on long-acting morphine and steroids as well as IV fluids. Hypercalcemia was treated with pamidronate. Patient was found to be pancytopenic but not neutropenic and was given 1 unit of packed red blood cells. She developed hypotension is felt to be secondary to opiates and was started on levo fed. This morning she is sitting up in bed eating breakfast denies any lightheadedness or shortness of breath. Pain is well controlled. MS Contin dose was cut back to avoid hypotension. We will continue IV fluids and try to wean her off the pressors. She reports constipation. Reason For Visit: HYPERCALCEMIA,METASTATIC THYROID CANCER,AKF Physical Exam Vital Signs: Temp Pulse Resp BP Pulse Ox 98.2 F 67 12 92/63 L 100 10/04/17 07:36 10/04/17 07:43 10/04/17 07:36 10/04/17 07:36 10/04/17 07:36 Intake & Output 10/03/17 10/04/17 10/05/17 06:59 06:59 06:59 Intake Total 2983 3573 Output Total 2325 4180 300 Balance 658 -607 -300 Weight 71.9 kg 74.4 kg Additional comments: Middle aged female sitting up in bed not in acute distress Lungs: Clear to auscultation bilaterally normal respiratory effort Cardiac: S1-S2 regular no peripheral edema no cyanosis no calf tenderness no thrills palpable Abdomen: Soft, no focal tenderness normal bowel sounds Skin: Warm and dry Neurologic: Awake and alert oriented 3 Results Laboratory Results: 10/03/17 04:06 10/02/17 06:18 Impressions: Humerus X-Ray 09/30/17 12:54 IMPRESSION: Metastatic lesions without pathologic fracture. Shoulder X-Ray 09/30/17 13:00 IMPRESSION: Diffuse metastatic disease. No pathologic fractures on the right. Extensive rib involvement on the left with destruction as well as multiple pulmonary nodules. Assessment & Plan - Diagnosis (1) Acute renal failure Is this a current diagnosis for this admission?: Yes Plan: Resolved with IV fluids. (2) Anemia Qualifiers: Bone marrow failure anemia type: other bone marrow failure Is this a current diagnosis for this admission?: Yes Plan: 1 unit of packed red blood cells. (3) Hypercalcemia of malignancy Is this a current diagnosis for this admission?: Yes Plan: Improved. Continue IV fluids. (4) Hypothyroid Qualifiers: Hypothyroidism type: acquired Qualified Code(s): E03.9 - Hypothyroidism, unspecified Is this a current diagnosis for this admission?: Yes Plan: We will resume Synthroid once we get the outpatient dose. (5) Metastasis to bone Is this a current diagnosis for this admission?: Yes (6) Right arm pain Is this a current diagnosis for this admission?: Yes Plan: Continue MS Contin 15 mg twice a day. (7) Cancer associated pain Is this a current diagnosis for this admission?: Yes (8) Hypotension Is this a current diagnosis for this admission?: Yes Plan: Does not appear septic. She is afebrile. Continue IV fluids and pressors. This is felt to be secondary to high-dose opiates. These are being tested. Her blood pressure generally runs about 100 systolic. - Time Time Spent with patient: 25-34 minutes
[2017-10-04] MEDS ORDERED: HYDROMORPHONE HCL INJ/PF 2 MG/ML AMPULE IV PRN (09:50)
[2017-10-04] MEDS ORDERED: OXYCODONE HCL IR 5 MG TABLET PO PRN (09:50)
[2017-10-04] MEDS ORDERED: ENOXAPARIN SODIUM INJ 40 MG/0.4 ML DISP.SYRIN SUBCUT SCH (10:00)
[2017-10-04] MEDS: MORPHINE SULFATE SR 15 MG TABLET PO SCH ×2 (10:07→22:30)
[2017-10-04] MEDS: DOCUSATE SODIUM 100 MG CAPSULE PO SCH ×2 (10:07→17:34)
[2017-10-04] MEDS: NORMAL SALINE 1000 ML 1,000 ML IV PRN ×3 (10:08→23:41)
[2017-10-04] MEDS ORDERED: BISACODYL 5 MG TABEC PO ONE (11:00)
[2017-10-04 11:45] LABS: HEMATOCRIT 27.3 % (36.0-47.0); MEAN CORPUSCULAR HEMOGLOBIN 26.3 pg (27.0-33.4); MEAN CORPUSCULAR HGB CONC 32.8 g/dL (32.0-36.0); MEAN CORPUSCULAR VOLUME 80 fl (80-97); PLATELET COUNT 129 10^3/uL (150-450); RED BLOOD COUNT 3.41 10^6/uL (3.72-5.28); RED CELL DISTRIBUTION WIDTH 18.5 % (11.5-14.0); WHITE BLOOD COUNT 5.1 10^3/uL (4.0-10.5)
[2017-10-04 11:55] LABS: INTERNATIONAL RATION (INR) 1.17; PROTHROMBIN TIME 15.7 SEC (11.4-15.4)
[2017-10-04 11:56] LABS: PARTIAL THROMBOPLASTIN TIME 28.6 SEC (23.5-35.8)
[2017-10-04] MEDS ORDERED: BISACODYL 10 MG SUPP.RECT PR ONE (17:37)
[2017-10-04] MEDS ORDERED: MAGNESIUM CITRATE 296 ML BOTTLE PO ONE (17:37)
[2017-10-05] MEDS ORDERED: PHENYLEPHRINE HCL INJ/PF 10 MG/1 ML SDV ONE (05:30)
[2017-10-05] MEDS: DEXTROSE 5%-WATER 250 ML with PHENYLEPHRINE HCL 40 MG IV PRN ×2 (05:38)
[2017-10-05] MEDS: LANSOPRAZOLE 30 MG TAB.RAP.DR PO SCH (05:39)
[2017-10-05] MEDS: DEXAMETHASONE 4 MG TABLET PO SCH ×3 (05:39→20:59)
[2017-10-05] MEDS: NORMAL SALINE 1000 ML 1,000 ML IV PRN ×3 (05:39→17:43)
[2017-10-05] MEDS: MORPHINE SULFATE SR 15 MG TABLET PO SCH ×2 (09:38→20:58)
[2017-10-05] MEDS: DOCUSATE SODIUM 100 MG CAPSULE PO SCH ×2 (09:39→17:31)
[2017-10-05] MEDS: ENOXAPARIN SODIUM INJ 40 MG/0.4 ML DISP.SYRIN SUBCUT SCH (09:40)
--- NOTE | 2017-10-05 17:03 | PDOC PROGRESS REPORT ---
Subjective Progress Note for:: 10/05/17 Subjective:: 56-year-old female with stage IV thyroid cancer with metastatic disease to the bone who is visiting from [place]. She has not had any chemotherapy or radiation for more than 6 months and has been trying to find a primary care physician and an oncologist locally but has been unsuccessful due to lack of transferable insurance. She presented to the emergency room on September 30 with right humerus pain that has been ongoing for 3-4 months. Emergency room she was found to have a calcium level of 14.7 with acute renal failure. X-ray of her arm showed metastatic disease to the bone. She was started on long-acting morphine and steroids as well as IV fluids. Hypercalcemia was treated with pamidronate. Patient was found to be pancytopenic but not neutropenic and was given 1 unit of packed red blood cells. She developed hypotension is felt to be secondary to opiates and was started on levo fed. This morning she is sitting up in bed eating breakfast denies any lightheadedness or shortness of breath. Pain is well controlled. MS Contin dose was cut back to avoid hypotension. Continue IV fluids and try to wean her off the pressors. Complaints at present. She had a small bowel movement last night. Reason For Visit: HYPERCALCEMIA,METASTATIC THYROID CANCER,AKF Physical Exam Vital Signs: Temp Pulse Resp BP Pulse Ox 98.4 F 61 16 90/58 L 98 10/05/17 14:15 10/05/17 14:00 10/05/17 14:15 10/05/17 14:14 10/05/17 14:15 Intake & Output 10/04/17 10/05/17 10/06/17 06:59 06:59 06:59 Intake Total 3573 4478 Output Total 4180 3900 1570 Balance -607 578 -1570 Weight 74.4 kg 74.9 kg Additional comments: Middle aged female sitting up in bed not in acute distress Lungs: Clear to auscultation bilaterally normal respiratory effort Cardiac: S1-S2 regular no peripheral edema no cyanosis no calf tenderness no thrills palpable Abdomen: Soft, no focal tenderness normal bowel sounds Skin: Warm and dry Neurologic: Awake and alert oriented 3 Results Laboratory Results: 10/04/17 11:35 10/04/17 11:35 Impressions: Humerus X-Ray 09/30/17 12:54 IMPRESSION: Metastatic lesions without pathologic fracture. Shoulder X-Ray 09/30/17 13:00 IMPRESSION: Diffuse metastatic disease. No pathologic fractures on the right. Extensive rib involvement on the left with destruction as well as multiple pulmonary nodules. Assessment & Plan - Diagnosis (1) Acute renal failure Is this a current diagnosis for this admission?: Yes (2) Anemia Qualifiers: Bone marrow failure anemia type: other bone marrow failure Is this a current diagnosis for this admission?: Yes (3) Hypercalcemia of malignancy Is this a current diagnosis for this admission?: Yes (4) Hypothyroid Qualifiers: Hypothyroidism type: acquired Qualified Code(s): E03.9 - Hypothyroidism, unspecified Is this a current diagnosis for this admission?: Yes (5) Metastasis to bone Is this a current diagnosis for this admission?: Yes (6) Right arm pain Is this a current diagnosis for this admission?: Yes (7) Cancer associated pain Is this a current diagnosis for this admission?: Yes (8) Hypotension Is this a current diagnosis for this admission?: Yes - Time Time Spent with patient: 25-34 minutes - Plan Summary Plan Summary: Continue IV fluids and pressors to maintain blood pressure Continue analgesics for pain. Tinea Synthroid for hypo-thyroidism Hypercalcemia was treated with IV fluids and Pamidronate.
[2017-10-06] MEDS: NORMAL SALINE 1000 ML 1,000 ML IV PRN ×4 (01:13→17:48)
[2017-10-06] MEDS: LANSOPRAZOLE 30 MG TAB.RAP.DR PO SCH (06:21)
[2017-10-06] MEDS: DEXAMETHASONE 4 MG TABLET PO SCH ×3 (06:21→22:41)
[2017-10-06 08:47] LABS: HEMATOCRIT 26.3 % (36.0-47.0); HEMOGLOBIN 8.7 g/dL (12.0-15.5); MEAN CORPUSCULAR HEMOGLOBIN 26.3 pg (27.0-33.4); MEAN CORPUSCULAR VOLUME 80 fl (80-97); PLATELET COUNT 115 10^3/uL (150-450); RED CELL DISTRIBUTION WIDTH 18.4 % (11.5-14.0); WHITE BLOOD COUNT 5.1 10^3/uL (4.0-10.5)
--- NOTE | 2017-10-06 09:11 | PDOC PROGRESS REPORT ---
Subjective Progress Note for:: 10/01/17 Subjective:: Patient with stage 4 thyroid cancer with mets to the bones. Patient with right arm pain due to mets to bones. Patient ran out of pain medication. Patient recently relocated from [facility] patient unable to establish care due insurance issues. Patient transferred to ICU overnight due to being hypotensive and requiring pressor. Patient states pain in better. Reason For Visit: HYPERCALCEMIA,METASTATIC THYROID CANCER,AKF Physical Exam Vital Signs: Selected Entries 10/01/17 22:00 Temperature 99.1 F Heart Rate ( 75 Monitors) Respiratory 18 Rate O2 Sat by Pulse 96 Oximetry Selected Entries 10/01/17 10/01/17 22:00 22:04 Blood Pressure 67 Mean O2 Sat by Pulse 96 Oximetry General appearance: PRESENT: no acute distress, well-developed, well-nourished Head exam: PRESENT: normocephalic Eye exam: PRESENT: EOMI. ABSENT: scleral icterus Ear exam: PRESENT: normal external ear exam Mouth exam: PRESENT: moist Neck exam: PRESENT: lymphadenopathy - diffuse cervical, subclavicular, submadibular. ABSENT: carotid bruit, JVD, thyromegaly Respiratory exam: PRESENT: clear to auscultation ronak. ABSENT: rales, rhonchi, wheezes Cardiovascular exam: PRESENT: RRR. ABSENT: diastolic murmur, rubs, systolic murmur GI/Abdominal exam: PRESENT: normal bowel sounds, soft. ABSENT: distended, guarding, mass, organolmegaly, rebound, tenderness Rectal exam: PRESENT: deferred Gentrourinary exam: PRESENT: indwelling catheter Extremities exam: PRESENT: full ROM. ABSENT: calf tenderness, clubbing, pedal edema Neurological exam: PRESENT: alert, awake, oriented to person, oriented to place , oriented to time, oriented to situation, CN II-XII grossly intact. ABSENT: motor sensory deficit Psychiatric exam: PRESENT: appropriate affect, normal mood. ABSENT: homicidal ideation, suicidal ideation Skin exam: PRESENT: dry, intact, warm. ABSENT: cyanosis, rash Results Impressions: Humerus X-Ray 09/30/17 12:54 IMPRESSION: Metastatic lesions without pathologic fracture. Shoulder X-Ray 09/30/17 13:00 IMPRESSION: Diffuse metastatic disease. No pathologic fractures on the right. Extensive rib involvement on the left with destruction as well as multiple pulmonary nodules. Assessment & Plan - Diagnosis (1) Metastasis to bone Is this a current diagnosis for this admission?: Yes Plan: Right arm pain secondary to metastasis of her thyroid cancer to the bone. Attempt to manage pain. Patient pain medications adjusted by oncology due to patient inability to afford certain medications. Pain better controlled today. (2) Acute renal failure Is this a current diagnosis for this admission?: Yes Plan: Secondary to hypercalcemia from metastasis to the bone. Creatinine mildly improved. Will continue to monitor. Kapadia in place. (3) Hypercalcemia of malignancy Is this a current diagnosis for this admission?: Yes Plan: Likely due to metastatic cancer to the bone. Patient was given pamidronate 82 doses in the ED. Patient given another dose of pamidronate this morning. Calcium trending down form 12.7 to 10.8. (4) Hypothyroid Qualifiers: Hypothyroidism type: acquired Qualified Code(s): E03.9 - Hypothyroidism, unspecified Is this a current diagnosis for this admission?: Yes Plan: Patient had thyroidectomy to thyroid cancer. Need to be on thyroid replacement. (5) Pancytopenia due to antineoplastic chemotherapy Is this a current diagnosis for this admission?: Yes Plan: She pancytopenic however not neutropenic. Patient transfused a total of 2 units thus far. Patient did not respond to first unit or there could have been some dilution due to aggressive IV fluid hydration for hypercalcemia. (6) Thyroid cancer Is this a current diagnosis for this admission?: Yes (7) Hypotension Qualifiers: Hypotension type: unspecified hypotension type Qualified Code(s): I95.9 - Hypotension, unspecified Is this a current diagnosis for this admission?: Yes Plan: Patient currently on pressor and fluids. Will monitor an attempt to wean off pressor if blood pressure is stable. - Time Time Spent with patient: 15-24 minutes Anticipated discharge: Home with Homehealth - Inpatient Certification Medical Necessity: Significant Comorbidiites Make Outpatient Treatment Too Risky , Need Close Monitoring Due to Risk of Patient Decompensation, Need For IV Fluids
[2017-10-06 09:14] LABS: ALANINE AMINOTRANSFERASE 44 U/L (9-52); ALBUMIN 2.9 g/dL (3.5-5.0); ALKALINE PHOSPHATASE 135 U/L (38-126); ANION GAP 7 (5-19); ASPARTATE AMINO TRANSFERASE 39 U/L (14-36); BILIRUBIN,DIRECT 0.2 mg/dL (0.0-0.4); BILIRUBIN,TOTAL 0.2 mg/dL (0.2-1.3); BLOOD UREA NITROGEN 21 mg/dL (7-20); CALCIUM 8.4 mg/dL (8.4-10.2); CARBON DIOXIDE 17 mmol/L (22-30); CHLORIDE 111 mmol/L (98-107); GLUCOSE 108 mg/dL (75-110); MAGNESIUM 2.1 mg/dL (1.6-2.3); PHOSPHORUS 1.5 mg/dL (2.5-4.5); POTASSIUM 4.5 mmol/L (3.6-5.0); SODIUM 135.4 mmol/L (137-145); TOTAL PROTEIN 5.1 g/dL (6.3-8.2)
[2017-10-06 09:15] LABS: C-REACTIVE PROTEIN < 5.0 mg/L (<10.0)
[2017-10-06 09:20] LABS: ABSOLUTE LYMPHOCYTES# (MANUAL) 0.6 10^3/uL (0.5-4.7); ABSOLUTE MONOCYTES # (MANUAL) 0.1 10^3/uL (0.1-1.4); ABSOLUTE NEUTROPHILS# (MANUAL) 4.4 10^3/uL (1.7-8.2); BAND NEUTROPHILS % (MANUAL) 1 % (3-5); BASOPHILS % (MANUAL) 0 % (0-2); EOSINOPHILS % (MANUAL) 1 % (0-6); LYMPHOCYTES % (MANUAL) 12 % (13-45); METAMYELOCYTES % (MANUAL) 2 % (0); MONOCYTES % (MANUAL) 1 % (3-13); SEGMENTED NEUTROPHILS % (MAN) 83 % (42-78); TOTAL CELLS COUNTED 100
[2017-10-06 09:22] LABS: TOXIC GRANULATION SLIGHT; TOXIC VACUOLATION PRESENT
[2017-10-06 09:23] LABS: ANISOCYTOSIS 1+; HYPOCHROMASIA SLIGHT; PLATELET COMMENT ADEQUATE; POIKILOCYTOSIS SLIGHT
[2017-10-06 09:24] LABS: ERYTHROCYTE SEDIMENTATION RATE 22 mm/hr (0-30)
--- NOTE | 2017-10-06 09:25 | PDOC PROGRESS REPORT ---
Subjective Progress Note for:: 10/02/17 Subjective:: Patient with stage 4 thyroid cancer with mets to the bones. Patient with right arm pain due to mets to bones. Patient ran out of pain medication. Patient recently relocated from [facility] patient unable to establish care due insurance issues. Patient with decreased urine output therefore pressor increased. Patient with no complaints today. She is just worried about that hospital bill. Reason For Visit: HYPERCALCEMIA,METASTATIC THYROID CANCER,AKF Physical Exam Vital Signs: Selected Entries 10/02/17 00:04 Temperature 98.2 F Heart Rate ( 72 Monitors) Respiratory 23 H Rate Blood Pressure 100/82 Blood Pressure 88 Mean O2 Sat by Pulse 99 Oximetry General appearance: PRESENT: no acute distress, well-developed, well-nourished Head exam: PRESENT: atraumatic, normocephalic Eye exam: PRESENT: conjunctiva pink, EOMI, PERRLA. ABSENT: scleral icterus Ear exam: PRESENT: normal external ear exam Mouth exam: PRESENT: moist, tongue midline Neck exam: PRESENT: lymphadenopathy - diffuse. ABSENT: carotid bruit, JVD, thyromegaly Respiratory exam: PRESENT: clear to auscultation ronak. ABSENT: rales, rhonchi, wheezes Cardiovascular exam: PRESENT: RRR. ABSENT: diastolic murmur, rubs, systolic murmur Pulses: PRESENT: normal dorsalis pedis pul Vascular exam: PRESENT: normal capillary refill GI/Abdominal exam: PRESENT: normal bowel sounds, soft. ABSENT: distended, guarding, mass, organolmegaly, rebound, tenderness Rectal exam: PRESENT: deferred Gentrourinary exam: PRESENT: indwelling catheter Extremities exam: PRESENT: full ROM. ABSENT: calf tenderness, clubbing, pedal edema Neurological exam: PRESENT: alert, awake, oriented to person, oriented to place , oriented to time, oriented to situation, CN II-XII grossly intact. ABSENT: motor sensory deficit Psychiatric exam: PRESENT: appropriate affect, normal mood. ABSENT: homicidal ideation, suicidal ideation Skin exam: PRESENT: dry, intact, warm. ABSENT: cyanosis, rash Results Impressions: Humerus X-Ray 09/30/17 12:54 IMPRESSION: Metastatic lesions without pathologic fracture. Shoulder X-Ray 09/30/17 13:00 IMPRESSION: Diffuse metastatic disease. No pathologic fractures on the right. Extensive rib involvement on the left with destruction as well as multiple pulmonary nodules. Assessment & Plan - Diagnosis (1) Thyroid cancer Is this a current diagnosis for this admission?: Yes Plan: Metastatic stage IV cancer. Patient was undergoing treatment in [place] but decided to move here with family. Patient has not received any treatment since then. She states she has had it back to [place] to continue her treatment. Documents were sent to [facility] and her hospital stay has been approved. The contact there is Elli Zayas [phone]. There is someone available all the time. (2) Metastasis to bone Is this a current diagnosis for this admission?: Yes Plan: Right arm pain secondary to metastasis of her thyroid cancer to the bone. Patient pain medications adjusted by oncology due to patient inability to afford certain medications. Patient on decadron in addition to pain medication. Pain better controlled. (3) Acute renal failure Is this a current diagnosis for this admission?: Yes Plan: Secondary to hypercalcemia/dehydration from metastasis to the bone. Creatinine mildly improved. Will continue to monitor. Kapadia in place. Urine improved. Will continue to monitor as patient renal function was normal on previous admission. (4) Hypercalcemia of malignancy Is this a current diagnosis for this admission?: Yes Plan: Likely due to metastatic cancer to the bone. Patient was given pamidronate 82 doses in the ED. Patient given another dose of pamidronate this morning. Calcium trending down. (5) Hypothyroid Qualifiers: Hypothyroidism type: acquired Qualified Code(s): E03.9 - Hypothyroidism, unspecified Is this a current diagnosis for this admission?: Yes Plan: Patient had thyroidectomy to thyroid cancer. Patient with hypothyroidism despite stating that she takes replacement at home. Will start replacement. (6) Pancytopenia due to antineoplastic chemotherapy Is this a current diagnosis for this admission?: Yes Plan: She pancytopenic however not neutropenic. Patient transfused a total of 2 units thus far. Hemoglobin improved. SCD for DVT prophylaxis as patient is thrombocytopenic. (7) Hypotension Qualifiers: Hypotension type: unspecified hypotension type Qualified Code(s): I95.9 - Hypotension, unspecified Is this a current diagnosis for this admission?: Yes Plan: Patient currently on pressor and fluids. Will monitor an attempt to wean off pressor if blood pressure is stable. Patient without any clear signs of infection. This could be medication induced or due to to severe volume depletion. - Time Time Spent with patient: Less than 15 minutes Anticipated discharge: Home - Inpatient Certification Medical Necessity: Significant Comorbidiites Make Outpatient Treatment Too Risky , Need Close Monitoring Due to Risk of Patient Decompensation, Need For IV Fluids, Need For Continuous Telemetry Monitoring - Patient still require pressor in the ICU.
[2017-10-06] MEDS ORDERED: LEVOTHYROXINE SODIUM 0.15 MG TABLET PO ONE (10:30)
[2017-10-06] MEDS: MORPHINE SULFATE SR 15 MG TABLET PO SCH ×2 (10:46→22:42)
[2017-10-06] MEDS: DOCUSATE SODIUM 100 MG CAPSULE PO SCH ×2 (10:47→17:48)
[2017-10-06] MEDS: ENOXAPARIN SODIUM INJ 40 MG/0.4 ML DISP.SYRIN SUBCUT SCH (10:47)
[2017-10-06] MEDS ORDERED: FLUDROCORTISONE ACETATE 0.1 MG TABLET PO SCH (15:00)
--- NOTE | 2017-10-06 16:40 | XCELERA REPORT ---
[address] [address] Transthoracic Echocardiogram Report Name: SALVADOR SANFORD Age: 56 yrs Gender: Female : 1960 Patient Status: Inpatient Patient Location: ICU^606^A Study Date: 10/06/2017 10:01 AM Height: 64 in Weight: 168 lb BSA: 1.8 m2 Procedure: A two-dimensional transthoracic echocardiogram with color flow and Doppler was performed. The study was technically difficult with many images being suboptimal in quality. Reason For Study: Persistent hypotension History: Persistent hypotension. Ordering Physician: BRISA JOHNSON Performed By: Yomaira Krause Interpretation Summary There is a questionable mass in the basal posterior wall.Possible metastases to the Liver. The left ventricle is borderline dilated. There is normal left ventricular wall thickness. LV EF is > than 65% Left ventricular systolic function is normal. Doppler measurements suggest normal left ventricular diastolic function The left ventricular wall motion is normal. There is no thrombus. The right ventricle is grossly normal size. The right ventricle is not well visualized secondary to technical limitations The right atrium is normal. The left atrium is mildly dilated. There is no evidence of mitral valve prolapse. There is no mitral valve stenosis. There is a mild amount of mitral regurgitation The aortic valve is trileaflet. There is no aortic valvular vegetation. There is no aortic valve stenosis There is no LVOT obstruction. No aortic regurgitation is present. There is no tricuspid stenosis. There is a mild amount of tricuspid regurgitation There is mild pulmonary hypertension by echo RVSP is 42 mm of Hg , with RA mean of 5. Minimal posterior pericardial effusin. There is a questionable mass in the basal posterior wall.Possible metastases to the Liver. MMode/2D Measurements & Calculations RVDd: 3.3 cm LVIDd: 6.0 cm FS: 45.2 % Ao root diam: 3.0 cm IVSd: 0.94 cm LVIDs: 3.3 cm EDV(Teich): 180.6 ml LVPWd: 0.86 cm ESV(Teich): 43.8 ml Ao root area: 7.2 cm2 EF(Teich): 75.7 % LA dimension: 4.6 cm Doppler Measurements & Calculations MV E max uri: MV P1/2t max uri: Ao V2 max: LV V1 max P.2 cm/sec 139.7 cm/sec 184.6 cm/sec 7.9 mmHg MV A max uri: MV P1/2t: 73.0 msec Ao max PG: LV V1 max: 100.2 cm/sec 13.6 mmHg 140.7 cm/sec MV E/A: 1.4 MVA(P1/2t): 3.0 cm2 MV dec slope: 560.7 cm/sec2 MV dec time: 0.25 sec PA V2 max: PI end-d uri: TR max uri: 103.7 cm/sec 115.4 cm/sec 301.3 cm/sec PA max PG: TR max P.3 mmHg 36.3 mmHg Left Ventricle The left ventricle is borderline dilated. There is normal left ventricular wall thickness. LV EF is > than 65%. Left ventricular systolic function is normal. Doppler measurements suggest normal left ventricular diastolic function. The left ventricular wall motion is normal. There is no thrombus. Right Ventricle The right ventricle is grossly normal size. The right ventricle is not well visualized secondary to technical limitations. Atria The right atrium is normal. The left atrium is mildly dilated. Mitral Valve There is no evidence of mitral valve prolapse. There is no vegetation seen on the mitral valve. There is no mitral valve stenosis. There is a mild amount of mitral regurgitation. Aortic Valve The aortic valve is trileaflet. There is no aortic valvular vegetation. There is no aortic valve stenosis. There is no LVOT obstruction. No aortic regurgitation is present. Tricuspid Valve There is no tricuspid stenosis. There is a mild amount of tricuspid regurgitation. There is mild pulmonary hypertension by echo. RVSP is 42 mm of Hg , with RA mean of 5. Pulmonic Valve There is no pulmonic valvular stenosis. There is a trace amount of pulmonic regurgitation. Great Vessels The aortic root is normal size. Effusions Minimal posterior pericardial effusin. : ALEX JANUARY > Rebecca Edmonds
[2017-10-06] MEDS: HYDROCORTISONE 10 MG TABLET PO SCH (17:47)
[2017-10-06] MEDS: PROMETHAZINE HCL INJ 25 MG/1 ML VIAL IV PRN (18:02)
--- NOTE | 2017-10-06 18:37 | PDOC PROGRESS REPORT ---
Subjective Progress Note for:: 10/06/17 Subjective:: 56-year-old female with stage IV thyroid cancer with metastatic disease to the bone who is visiting from [place]. She has not had any chemotherapy or radiation for more than 6 months and has been trying to find a primary care physician and an oncologist locally but has been unsuccessful due to lack of transferable insurance. She presented to the emergency room on September 30 with right humerus pain that has been ongoing for 3-4 months. Emergency room she was found to have a calcium level of 14.7 with acute renal failure. X-ray of her arm showed metastatic disease to the bone. She was started on long-acting morphine and steroids as well as IV fluids. Hypercalcemia was treated with pamidronate. Patient was found to be pancytopenic but not neutropenic and was given 1 unit of packed red blood cells. She developed hypotension is felt to be secondary to opiates and was started on levo fed. This morning she is sitting up in bed eating breakfast denies any lightheadedness or shortness of breath. Pain is well controlled. MS Contin dose was cut back to avoid hypotension. No Complaints at present. He has been weaned off the pressors. She seems to have adrenal insufficiency. She has been started on fludrocortisone and hydrocortisone. Reason For Visit: HYPERCALCEMIA,METASTATIC THYROID CANCER,AKF Physical Exam Vital Signs: Temp Pulse Resp BP Pulse Ox 97.7 F 69 18 100/57 L 99 10/06/17 16:38 10/06/17 16:38 10/06/17 16:38 10/06/17 16:38 10/06/17 16:38 Intake & Output 10/05/17 10/06/17 10/07/17 06:59 06:59 06:59 Intake Total 4478 3614 414 Output Total 3900 0920 2600 Balance 548 -7722 -0868 Weight 74.9 kg 76.3 kg Additional comments: Middle aged female sitting up in bed not in acute distress Lungs: Clear to auscultation bilaterally normal respiratory effort Cardiac: S1-S2 regular no peripheral edema no cyanosis no calf tenderness no thrills palpable Abdomen: Soft, no focal tenderness normal bowel sounds Skin: Warm and dry Neurologic: Awake and alert oriented 3 Results Laboratory Results: 10/06/17 08:34 10/06/17 08:34 10/06/17 10/06/17 10/06/17 08:34 08:34 08:34 WBC 5.1 RBC 3.30 L Hgb 8.7 L Hct 26.3 L MCV 80 MCH 26.3 L MCHC 33.0 RDW 18.4 H Plt Count 115 L Seg Neutrophils % Not Reportable Lymphocytes % Not Reportable Monocytes % Not Reportable Eosinophils % Not Reportable Basophils % Not Reportable Absolute Neutrophils Not Reportable Absolute Lymphocytes Not Reportable Absolute Monocytes Not Reportable Absolute Eosinophils Not Reportable Absolute Basophils Not Reportable Sodium 135.4 L Potassium 4.5 Chloride 111 H Carbon Dioxide 17 L Anion Gap 7 BUN 21 H Creatinine 0.85 Est GFR ( Amer) > 60 Est GFR (Non-Af Amer) > 60 Glucose 108 Calcium 8.4 Phosphorus 1.5 L Magnesium 2.1 Total Bilirubin 0.2 AST 39 H ALT 44 Alkaline Phosphatase 135 H C-Reactive Protein < 5.0 Total Protein 5.1 L Albumin 2.9 L TSH 11.90 H 10/06/17 08:34 NT-Pro-B Natriuret Pep 2970 H Impressions: Humerus X-Ray 09/30/17 12:54 IMPRESSION: Metastatic lesions without pathologic fracture. Shoulder X-Ray 09/30/17 13:00 IMPRESSION: Diffuse metastatic disease. No pathologic fractures on the right. Extensive rib involvement on the left with destruction as well as multiple pulmonary nodules. Assessment & Plan - Diagnosis (1) Acute renal failure Is this a current diagnosis for this admission?: Yes (2) Anemia Qualifiers: Bone marrow failure anemia type: other bone marrow failure Is this a current diagnosis for this admission?: Yes (3) Hypercalcemia of malignancy Is this a current diagnosis for this admission?: Yes (4) Hypothyroid Qualifiers: Hypothyroidism type: acquired Qualified Code(s): E03.9 - Hypothyroidism, unspecified Is this a current diagnosis for this admission?: Yes (5) Metastasis to bone Is this a current diagnosis for this admission?: Yes (6) Right arm pain Is this a current diagnosis for this admission?: Yes (7) Cancer associated pain Is this a current diagnosis for this admission?: Yes (8) Hypotension Qualifiers: Hypotension type: unspecified hypotension type Qualified Code(s): I95.9 - Hypotension, unspecified Is this a current diagnosis for this admission?: Yes - Time Time Spent with patient: 25-34 minutes - Plan Summary Plan Summary: Started on fludrocortisone and hydrocortisone to maintain blood pressure Continue analgesics for pain. Continue Synthroid for hypothyroidism Hypercalcemia was treated with IV fluids and Pamidronate.
[2017-10-07] MEDS: NORMAL SALINE 1000 ML 1,000 ML IV PRN ×2 (01:04→07:10)
[2017-10-07] MEDS ORDERED: LEVOTHYROXINE SODIUM 0.05 MG TABLET PO SCH (06:00)
[2017-10-07] MEDS ORDERED: LEVOTHYROXINE SODIUM 0.15 MG TABLET PO SCH (06:00)
[2017-10-07] MEDS: DEXAMETHASONE 4 MG TABLET PO SCH (06:16)
[2017-10-07] MEDS: LANSOPRAZOLE 30 MG TAB.RAP.DR PO SCH (06:17)
[2017-10-07] MEDS: HYDROCORTISONE 10 MG TABLET PO SCH (09:42)
[2017-10-07] MEDS: DOCUSATE SODIUM 100 MG CAPSULE PO SCH (09:42)
[2017-10-07] MEDS: ENOXAPARIN SODIUM INJ 40 MG/0.4 ML DISP.SYRIN SUBCUT SCH (09:42)
[2017-10-07] MEDS ORDERED: PHOSPHORUS #1 250 MG TABLET PO SCH (11:00)
[2017-10-07] MEDS: MORPHINE SULFATE SR 15 MG TABLET PO SCH (11:53)
[2017-10-07 12:09] VITALS: BP 95/50
--- NOTE | 2017-10-07 14:53 | PDOC DISCHARGE SUMMARY ---
General - Admit/Disc Date/PCP Admission Date/Primary Care Provider: 09/30/17 14:46 No PCP locally Discharge Date: 10/07/17 - Discharge Diagnosis (1) Acute renal failure Is this a current diagnosis for this admission?: Yes (2) Anemia Is this a current diagnosis for this admission?: Yes (3) Hypercalcemia of malignancy Is this a current diagnosis for this admission?: Yes (4) Hypothyroid Is this a current diagnosis for this admission?: Yes (5) Metastasis to bone Is this a current diagnosis for this admission?: Yes (6) Right arm pain Is this a current diagnosis for this admission?: Yes (7) Cancer associated pain Is this a current diagnosis for this admission?: Yes (8) Hypotension Is this a current diagnosis for this admission?: Yes (9) Adrenal insufficiency Is this a current diagnosis for this admission?: Yes - Additional Information Resuscitation Status: Full Code Discharge Diet: As Tolerated Discharge Activity: Activity As Tolerated Prescriptions: Morphine Sulfate [Morphine Ir 15 mg Tablet] 15 mg PO Q4HP PRN 5 Days #30 tablet MDD last filled 07/19/17 PRN Reason: Pain Scale Per Md Ondansetron HCl [Zofran 4 mg Tablet] 4 mg PO Q6HP PRN #30 tablet PRN Reason: For Nausea/Vomiting Ferrous Sulfate 325 mg PO DAILY 30 Days #30 tablet Fludrocortisone Acetate [Florinef 0.1 mg Tablet] 0.1 mg PO DAILY@1500 30 Days # 30 tablet Gabapentin [Neurontin 300 mg Capsule] 300 mg PO Q8 30 Days #90 capsule MDD last filled 07/19/17 Hydrocortisone [Cortef 10 mg Tablet] 10 mg PO BID 30 Days #60 tablet Levothyroxine Sodium [Synthroid 0.15 mg Tablet] 0.3 mg PO CAMPOS@0600 30 Days #30 tablet Levothyroxine Sodium [Synthroid 0.15 mg Tablet] 0.15 mg PO MOTUWETHFRSA@06 30 Days #30 tablet MDD except monday Morphine Sulfate [Ms-Contin Sr 15 mg Tablet] 15 mg PO Q12 5 Days #10 tablet.sa Phosphorus #1 [K-Phos Neutral 250 mg Tablet] 500 mg PO ACHS 7 Days #28 tablet Home Medications: Cholecalciferol (Vitamin D3) [Vitamin D3 2000 unit Tablet] 1 cap PO DAILY Docusate Sodium [Colace 100 mg Capsule] 100 mg PO BID capsule 10/07/17 Ferrous Sulfate 325 mg PO DAILY 30 Days #30 tablet 10/07/17 Fludrocortisone Acetate [Florinef 0.1 mg Tablet] 0.1 mg PO DAILY@1500 30 Days # 30 tablet 10/07/17 Gabapentin [Neurontin 300 mg Capsule] 300 mg PO Q8 30 Days #90 capsule MDD last filled 07/19/17 10/07/17 Hydrocortisone [Cortef 10 mg Tablet] 10 mg PO BID 30 Days #60 tablet 10/07/17 Levothyroxine Sodium [Synthroid 0.15 mg Tablet] 0.15 mg PO MOTUWETHFRSA@06 30 Days #30 tablet MDD except monday10/07/17 Levothyroxine Sodium [Synthroid 0.15 mg Tablet] 0.3 mg PO CAMPOS@0600 30 Days #30 tablet 10/07/17 Morphine Sulfate [Morphine Ir 15 mg Tablet] 15 mg PO Q4HP PRN 5 Days #30 tablet MDD last filled 07/19/17 10/07/17 Morphine Sulfate [Ms-Contin Sr 15 mg Tablet] 15 mg PO Q12 5 Days #10 tablet.sa 10/07/17 Ondansetron HCl [Zofran 4 mg Tablet] 4 mg PO Q6HP PRN #30 tablet 10/07/17 Phosphorus #1 [K-Phos Neutral 250 mg Tablet] 500 mg PO ACHS 7 Days #28 tablet History of Present Illness History of Present Illness: SALVADOR SANFORD is a 56-year-old female with stage IV thyroid cancer with metastatic disease to the bone who is visiting from [place]. She has not had any chemotherapy or radiation for more than 6 months and has been trying to find a primary care physician and an oncologist locally but has been unsuccessful due to lack of transferable insurance. She presented to the emergency room on September 30 with right humerus pain that has been ongoing for 3-4 months. She had been unable to take her meds for the past few weeks due to a lack of access to doctors in [place] due to insurance issues. In the Emergency room she was found to have a calcium level of 14.7 with acute renal failure. X-ray of her arm showed metastatic disease to the bone. She was started on long-acting morphine and steroids as well as IV fluids. Hypercalcemia was treated with pamidronate. Patient was found to be pancytopenic but not neutropenic and was given 1 unit of packed red blood cells. She developed hypotension is felt to be secondary to opiates and was started on levo fed. This morning she is sitting up in bed eating breakfast denies any lightheadedness or shortness of breath. Pain is well controlled. MS Contin dose was cut back to avoid hypotension. She was weaned off the pressors. She was diagnosed adrenal insufficiency and was started on fludrocortisone and hydrocortisone. BP is better. Orthostatic vitals were normal. She is ready for discharge. She was given prescriptions for all her meds including MS contin and Morphine IR. Hospital Course Hospital Course: See above Physical Exam Vital Signs: Temp Pulse Resp BP Pulse Ox 97.8 F 86 24 H 105/57 L 99 10/07/17 07:56 10/07/17 07:56 10/07/17 07:56 10/07/17 07:56 10/07/17 10:18 Intake & Output 10/06/17 10/07/17 10/08/17 06:59 06:59 06:59 Intake Total 3614 2901 Output Total 4970 3950 Balance -1356 -1049 Weight 76.3 kg 75.7 kg Additional comments: Lungs: Clear to auscultation bilaterally normal respiratory effort Cardiac: S1-S2 regular no peripheral edema no cyanosis no calf tenderness no thrills palpable Abdomen: Soft, no focal tenderness normal bowel sounds Skin: Warm and dry Results Laboratory Results: 10/06/17 08:34 10/06/17 08:34 10/06/17 08:34 NT-Pro-B Natriuret Pep 2970 H AM Cortisol level 0.75 Impressions: Humerus X-Ray 09/30/17 12:54 IMPRESSION: Metastatic lesions without pathologic fracture. Shoulder X-Ray 09/30/17 13:00 IMPRESSION: Diffuse metastatic disease. No pathologic fractures on the right. Extensive rib involvement on the left with destruction as well as multiple pulmonary nodules. Qualifiers PATEINT BEING DISCHARGED WITH ANY OF THE FOLLOWING DIAGNOSIS?: No Plan Discharge Plan: PCP and oncology follow up in 1 week. Time Spent: Greater than 30 Minutes
[2017-10-08] MEDS ORDERED: LEVOTHYROXINE SODIUM 0.15 MG TABLET PO SCH (06:00)
== END 2017-10-07 13:16 | disposition home or self-care (01) | DRG 640 ==
LOC: ER 12:22 → EH 14:46 → UNDOADMIN 15:01 → 5 17:09 → ICU 10-01 05:55 → 3N 10-06 16:32
PROVIDERS: ADMIT Pediatrics; ATTEND Pediatrics
PROC: 30233N1 Transfusion of Nonautologous Red Blood Cells into Peripheral Vein, Percutaneous Approach (ICD-10-PCS; principal; 2017-09-30)
DX: E83.52 Hypercalcemia (principal); D61.810 Antineoplastic chemotherapy induced pancytopenia; D61.1 Drug-induced aplastic anemia; N17.9 Acute kidney failure, unspecified; C79.51 Secondary malignant neoplasm of bone; E27.40 Unspecified adrenocortical insufficiency; D61.818 Other pancytopenia; D61.9 Aplastic anemia, unspecified; C73 Malignant neoplasm of thyroid gland; G89.3 Neoplasm related pain (acute) (chronic); E86.0 Dehydration; I10 Essential (primary) hypertension; T45.1X5A Adverse effect of antineoplastic and immunosuppressive drugs, initial encounter; E89.0 Postprocedural hypothyroidism; I95.2 Hypotension due to drugs; T40.605A Adverse effect of unspecified narcotics, initial encounter; Z79.899 Other long term (current) drug therapy; Z88.2 Allergy status to sulfonamides; Z80.1 Family history of malignant neoplasm of trachea, bronchus and lung
CPT/HCPCS: 36415; 36430; 80048; 80053; 82330; 82533; 82565; 83735; 83880; 84100; 84439; 84443; 84481; 85025; 85027; 85610; 85652; 85730; 86140; 86850; 86900; 86901; 86920; 93005; 93010; 93306; 99291; J1170; J1650; J1940; J2270; J2370; J2405; J2550; J3475; J3489; J3490; J7030; J7040; J7050; J7060; P9016